=== PATIENT | female | born 1935 | race Caucasian/White ===

== ENCOUNTER 2023-07-20 12:41 | Emergency (ER) | payer MEDICARE, SELFPAY ==
[2023-07-20 12:48] VITALS: BP 146/54
[2023-07-20 14:11] VITALS: BP 143/60
--- NOTE | 2023-07-20 14:13 | ED.GENMED ---
History of Present Illness
<Riley Veliz PA-C - Last Filed: 07/20/23 15:27>
General
Chief Complaint: Abdominal Pain
Source: patient and family
Time Seen by Provider: 07/20/23 14:11
Travel History
Have you had any contact with someone who has COVID-19?: No
Do you have any symptoms of coronavirus? Fever > 100 degrees, chills, cough, shortness of breath, sore throat, loss of taste or smell, muscle aches, or headache?: No
History of Present Illness
History of Present Illness:
88-year-old female with past medical history of GERD, hiatal hernia, previous antibiotic associated colitis presenting the emergency department for evaluation of generalized abdominal discomfort that started a couple of days ago, waxing and waning,
today seemingly worse prompting daughter to take patient here for further evaluation. Patient states that this feels similar to previous episode of antibiotic associated colitis although patient is denying any diarrhea, constipation, urinary
symptoms, fevers, nausea, vomiting. Patient describes the pain as 'like an acid'. She has not attempted any medications at this time.
Past History
<Riley Veliz PA-C - Last Filed: 07/20/23 15:27>
Past History
ED Past Medical History: Cancer (Melanoma), GERD and Hypothyroidism
ED Past Surgical History: Gynecological and Other
Patient has exhibited threatening behavior?: No
Social History
Tobacco: Former smoker
Alcohol: None
Drug: None
Personal: Other
Living: with family
Employment: Retired
Family History
Family History: Other
Review of Systems
<Riley Veliz PA-C - Last Filed: 07/20/23 15:27>
Review of Systems
All Other Systems: ROS reviewed and negative except as documented in HPI and ROS
Phy Exam
<Riley Veliz PA-C - Last Filed: 07/20/23 15:27>
Physical Exam
Physical Exam:
GENERAL: Alert , in no apparent distress
EYE: clear conjunctiva b/l
HEAD: NCAT
ENT: o/p clr, mmm.
CARDIAC: Regular rate and rhythm .
LUNGS: Clear breath sounds bilaterally, no acute respiratory distress, no wheezes/rales/rhonchi
ABDOMEN: Soft, mild tenderness across the mid abdomen but no rebound or guarding, no cvat, negative Caldwell sign, no tenderness at McBurney's point
NEUROLOGICAL: Alert and oriented
SKIN: Warm and dry, skin intact.
MUSCULOSKELETAL: well perfused.
PSYCH: Normal and appropriate interaction.
Scores
<KEVEN Sinha Last Filed: 07/20/23 15:27>
Heart Failure Risk
Heart Failure Risk Score: Not Applicable
Heart Score for Chest Pain Patients
STEMI patient?: Not applicable
Withdrawal Assessment of Alcohol
Withdrawal Assessment Completed?: Not applicable
Course
<KEVEN Sinha Last Filed: 07/20/23 15:27>
Orders/Labs/Results
Orders:
Orders
07/20/23 14:12
CT Abd/pelvis W Iv Cont Urgent
Comment:
Reason For Exam: generalized abd pain x 3-4 days
07/20/23 14:19
Famotidine [Pepcid] 20 mg IV NOW STA
Ketorolac [Toradol] 15 mg IV NOW STA
07/20/23 14:34
Complete Blood Count/With Diff Urgent
Comprehensive Metabolic Panel Urgent
Lipase Urgent
Urinalysis Reflex To Culture Urgent
Date Specimen was Collected: 07/20/23
Time Specimen was Collected: 14:24
Abnormal Lab Results
07/20/23
14:34
WBC 3.0 L 10^3/uL
(4.8-10.8)
RBC 3.75 L 10^6/uL
(4.20-5.40)
Hct 34.4 L %
(37.0-47.0)
MCH 32.3 H pg
(27.0-31.0)
Plt Count 129 L 10^3/uL
(130-400)
Absolute Lymphs (auto) 1.0 L 10^3/uL
(1.2-3.4)
Sodium 132 L mmol/L
(135-145)
07/20/23 14:34
07/20/23 14:34
Vital Signs
Initial and Last Documented VS:
Initial Vital Signs
Temp Pulse Resp BP Pulse Ox
98.0 F 77 20 146/54 99
07/20/23 12:48 07/20/23 12:48 07/20/23 12:48 07/20/23 12:48 07/20/23 12:48
Last Documented Vital Signs
Temp Pulse Resp BP Pulse Ox
98.0 F 65 17 146/58 98
07/20/23 12:48 07/20/23 17:45 07/20/23 17:45 07/20/23 17:03 07/20/23 17:45
<Benoit Tavares Jr., KEVEN - Last Filed: 07/20/23 18:24>
Orders/Labs/Results
Orders:
Orders
07/20/23 14:12
CT Abd/pelvis W Iv Cont Urgent
Comment:
Reason For Exam: generalized abd pain x 3-4 days
07/20/23 14:19
Famotidine [Pepcid] 20 mg IV NOW STA
Ketorolac [Toradol] 15 mg IV NOW STA
07/20/23 14:34
Complete Blood Count/With Diff Urgent
Comprehensive Metabolic Panel Urgent
Lipase Urgent
Urinalysis Reflex To Culture Urgent
Date Specimen was Collected: 07/20/23
Time Specimen was Collected: 14:24
Abnormal Lab Results
07/20/23
14:34
WBC 3.0 L 10^3/uL
(4.8-10.8)
RBC 3.75 L 10^6/uL
(4.20-5.40)
Hct 34.4 L %
(37.0-47.0)
MCH 32.3 H pg
(27.0-31.0)
Plt Count 129 L 10^3/uL
(130-400)
Absolute Lymphs (auto) 1.0 L 10^3/uL
(1.2-3.4)
Sodium 132 L mmol/L
(135-145)
07/20/23 14:34
07/20/23 14:34
Vital Signs
Initial and Last Documented VS:
Initial Vital Signs
Temp Pulse Resp BP Pulse Ox
98.0 F 77 20 146/54 99
07/20/23 12:48 07/20/23 12:48 07/20/23 12:48 07/20/23 12:48 07/20/23 12:48
Last Documented Vital Signs
Temp Pulse Resp BP Pulse Ox
98.0 F 65 17 146/58 98
07/20/23 12:48 07/20/23 17:45 07/20/23 17:45 07/20/23 17:03 07/20/23 17:45
<Riley Veliz PA-C - Last Filed: 07/20/23 15:27>
MDM/Problems Addressed
Differential Diagnosis Includes:
Colitis, diverticulitis, appendicitis, less concern for cholecystitis, GERD, hiatal hernia, gastritis
MDM/Problems Addressed:
88-year-old female presenting the emergency department for evaluation of a few days to maybe around 1 week of generalized abdominal discomfort. She notes that about 2 weeks ago she was on an antibiotic for urinary tract infection which she
completed and then within the last week or so has had this pain developed, today pain seemingly worse. Patient's abdominal exam is overall reassuring with some mild discomfort noted across the mid abdomen but otherwise nothing focal. Patient is
afebrile and overall well-appearing. Will check labs, CT imaging. Patient requesting something for pain. Will treat with low-dose of Toradol and Pepcid.
<Benoit Tavares Jr., PA-C - Last Filed: 07/20/23 18:24>
MDM/Problems Addressed
MDM/Problems Addressed:
88-year-old female presenting the emergency department for evaluation of a few days to maybe around 1 week of generalized abdominal discomfort. She notes that about 2 weeks ago she was on an antibiotic for urinary tract infection which she
completed and then within the last week or so has had this pain developed, today pain seemingly worse. Patient's abdominal exam is overall reassuring with some mild discomfort noted across the mid abdomen but otherwise nothing focal. Patient is
afebrile and overall well-appearing. Will check labs, CT imaging. Patient requesting something for pain. Will treat with low-dose of Toradol and Pepcid.
Care transition to Ed KEVEN Tavares : Following up on CT scan negative for acute process stable for outpatient management advised for close outpatient follow-up. Return precautions given.
<Riley Veliz PA-C - Last Filed: 07/20/23 15:27>
*Pulse Oximetry
Patient hypoxic: no
Data Reviewed
Review of Other/Old Records Reveals: Labs, Records and Progress Notes
Source: patient and family
<Benoit Tavares Jr., PA-C - Last Filed: 07/20/23 18:24>
*Critical Care Note
Total Time (30-74mins, 75-104mins- exclusive of procedures): Not Applicable
ED Attending Note
<Riley Veliz PA-C - Last Filed: 07/20/23 15:27>
-
Portions of this chart may have been created with voice recognition software.� Occasional wrong word or��sound alike� substitutions may have occurred due to the inherent limitations of voice recognition software.
Discharge Plan
Departure
Patient Disposition: Home (Routine Discharge)
Date of Disposition: 07/20/23
Time of Disposition: 18:24
Patient with high blood pressure during this ER visit?: Yes
Discharge Problem:
Abdominal pain
Instructions: Abdominal Pain
Prescriptions:
No Action
aspirin 81 MG tablet,delayed release (DR/EC)
81 mg PO DAILY
levothyroxine 25 MCG tablet
37.5 mcg PO DAILY
potassium chloride [Klor-Con M20] 20 MEQ tablet,ER particles/crystals
20 meq PO BID
calcium polycarbophil [Fiber-Tabs] 625 MG tablet
625 mg PO DAILYPRN PRN (Reason: constipation)
lansoprazole 15 MG capsule,delayed release(DR/EC)
15 mg PO DAILY
docusate sodium 100 MG capsule
100 mg PO BIDPRN PRN (Reason: constiaption)
fluticasone propionate 1 SPRAY spray,suspension
1 spray intranasal DAILYPRN PRN (Reason: allergies)
dicyclomine 10 MG capsule
10 mg PO Q6HPRN PRN (Reason: abd spasms)
cyclosporine [Restasis] 10 DROPS dropperette
1 drp BOTH EYES BID
polyethylene glycol 3350 17 GRAMS powder in packet
17 grams PO DAILYPRN PRN (Reason: constipation) 0RF
chlorthalidone 25 MG tablet
25 mg PO DAILY Qty: 30 0RF
metronidazole 500 mg tablet
500 mg PO Q8H Qty: 21 0RF
ciprofloxacin HCl 500 mg tablet
500 mg PO BID Qty: 14 0RF
Referrals:
Ghulam Rich MD [Family Provider] -
Activity Restrictions/Additional Instructions:
You came to the emergency department today with concerns of abdominal discomfort. Here your reassuring evaluation and reassuring CT scan. Please follow closely with your primary care doctor. Return to the emergency department for any worsening,
new or concerning symptoms.
Interventions
Interventions:
*Risk Screen - Suicide Last Done: 07/20/23 12:48
*General Assessment Last Done: 07/20/23 12:48
*Neglect/Abuse Screening Last Done: 07/20/23 16:12
*ED COVID-19 Vaccine History Last Done: 07/20/23 16:11
UQ-Tlqrnc-Jdgjhnhvhi Assessment Last Done: 07/20/23 14:51
[2023-07-20] MEDS: PEPCID 20 MG IV (14:37)
[2023-07-20] MEDS: TORADOL 15 MG IV (14:37)
[2023-07-20 14:48] LABS: % Basophils 0.3 % (0-2); % Eosinophils 1.6 % (0-6); % Immature Granulocytes 0.3 % (0-0.5); % Lymphocytes 33.9 % (20.5-51.1); % Monocytes 8.6 % (1.7-9.3); % Neutrophils 55.3 % (42.2-75.2); Absolute Eosinophils 0.1 10^3/uL (0-0.7); Absolute Monocytes 0.3 10^3/uL (0.1-0.6); Absolute Neutrophils 1.7 10^3/uL (1.4-6.5); Hematocrit 34.4 % (37.0-47.0); Hemoglobin 12.1 g/dL (12.0-16.0); Mean Corp Hgb Conc. 35.2 g/dL (33.0-37.0); Mean Corpuscular Hgb 32.3 pg (27.0-31.0); Mean Corpuscular Volume 91.7 fL (81.0-99.0); Nucleated Red Blood Cells % 0 %; Red Blood Cell Count 3.75 10^6/uL (4.20-5.40); Red Cell Dist. Width 12.1 % (11.5-14.5)
[2023-07-20 15:00] VITALS: BP 127/57
[2023-07-20 15:00] LABS: Urine Albumin Negative (Neg - Trace); Urine Bilirubin Negative (Negative); Urine Character Clear (Clear); Urine Color Yellow; Urine Glucose Negative (Negative); Urine Ketone Negative (Negative); Urine Leukocyte Negative (Negative); Urine Nitrite Negative (Negative); Urine Occult Blood Negative (Negative); Urine Urobilinogen Negative (Neg - 1+)
[2023-07-20 15:08] LABS: ALT (SGPT) 14 U/L (0-35); AST (SGOT) 25 U/L (14-36); Alkaline Phosphatase 50 U/L (38-126); Blood Urea Nitrogen 16 mg/dl (7-17); Carbon Dioxide 27 mmol/L (22-30); Chloride 101 mmol/L (98-107); Glucose 85 mg/dl (70-99); Lipase 100 U/L (23-300); Potassium 3.7 mmol/L (3.5-5.1); Sodium 132 mmol/L (135-145); Total Bilirubin 0.9 mg/dl (0.2-1.3); Total Protein 6.6 g/dl (6.3-8.2); eGFR > 60.00
[2023-07-20 15:09] LABS: Mean Platelet Volume 9.8 fL (7.4-10.4); Platelet Count 129 10^3/uL (130-400)
[2023-07-20 16:00] VITALS: BP 138/65
[2023-07-20 16:11] VITALS: BMI 21.9
[2023-07-20 17:03] VITALS: BP 146/58
[2023-07-20 18:53] VITALS: BP 130/68
== END 2023-07-20 18:54 | disposition home or self-care (01) ==
LOC: EMR 12:41
PROVIDERS: Physician Assistant Medical; EMERGENCY PHYSICIAN Emergency Medicine; FAMILY PHYSICIAN Family Medicine
DX: R10.9 Unspecified abdominal pain (principal); R03.0 Elevated blood-pressure reading, without diagnosis of hypertension; Z87.891 Personal history of nicotine dependence
CPT/HCPCS: 99284; 96374; 96375; 74177; 80053; 81003; 83690; 85025; Q9967

== ENCOUNTER → 2023-09-27 14:04 | Outpatient (REF) | payer MEDICARE, SELFPAY | LOC: RAD 14:04 | PROVIDERS: ATTENDING PHYSICIAN Family Medicine | DX: M54.50 Low back pain, unspecified (principal) | CPT/HCPCS: 72110 ==

== ENCOUNTER 2023-10-08 21:03 | Emergency (ER) | payer MEDICARE, SELFPAY ==
[2023-10-08 21:08] VITALS: BP 132/90
[2023-10-08 22:00] VITALS: BP 132/58
--- NOTE | 2023-10-08 22:19 | ED.GENMED ---
History of Present Illness
<SIDNEY Boogie - Last Filed: 10/09/23 04:19>
General
Chief Complaint: Fall
Time Seen by Provider: 10/08/23 22:06
Travel History
Have you had any contact with someone who has COVID-19?: No
Do you have any symptoms of coronavirus? Fever > 100 degrees, chills, cough, shortness of breath, sore throat, loss of taste or smell, muscle aches, or headache?: No
History of Present Illness
History of Present Illness:
This is an 88yo Female PMH hypothyroid presenting for a fall 2 hours ago. She states she was walking in her room and fell backwards onto the back of her head on carpet. She states she is unsure of what caused her to fall and denies a sensation of
dizziness, palpitations, or acute leg weakness prior to the fall. She complains of moderate throbbing pain which started in the back of her head and is now radiating to her forehead. She admits to a fall 2 weeks ago involving a compression fracture
of L1. She denies nausea, vomiting, dizziness, and confusion after the injury.
<Manjinder Aguirre DO - Last Filed: 10/09/23 00:17>
General
Source: patient and family
Exam Limitations: none
Past History
<SIDNEY Boogie - Last Filed: 10/09/23 04:19>
Past History
ED Past Medical History: Cancer (Melanoma), GERD and Hypothyroidism
ED Past Surgical History: Gynecological and Other
Patient has exhibited threatening behavior?: No
Social History
Tobacco: Former smoker
Alcohol: None
Drug: None
Personal: Other
Living: with family
Employment: Retired
Family History
Family History: Other
Review of Systems
<SIDNEY Boogie - Last Filed: 10/09/23 04:19>
Review of Systems
Allergies reviewed?: Yes
Constitutional: Reports no symptoms
EENT: Reports no symptoms
Respiratory: Reports no symptoms
Cardiac: Reports no symptoms
ABD/GI: Reports no symptoms
: Reports no symptoms
Musculoskeletal: Reports joint pain (describes chronic knee pain)
Neurological: Reports no symptoms
Phy Exam
<SIDNEY Boogie - Last Filed: 10/09/23 04:19>
General Physical Exam
General Presentation: well appearing and no apparent distress
General age: appears stated age
Cardiovascular Exam
Cardiovascular Exam: regular rate/rhythm, no gallop and no murmur
Pulmonary Exam
Pulmonary Exam: lungs clear
Neurological Exam
Neurological Exam: alert, oriented x3, no motor deficits, no sensory deficits and speech normal
Musculoskeletal Exam
Musculoskeletal Exam: other (no tenderness to neck, hips.)
Course
<SIDNEY Boogie - Last Filed: 10/09/23 04:19>
Orders/Labs/Results
Orders:
Orders
10/08/23 22:35
0.9% Sodium Chloride 1000 ml [Nss] 1,000 ml IV BOLUS
Acetaminophen [Tylenol] 1,000 mg PO NOW STA
10/08/23 22:36
CT Head W/o Iv Contrast Urgent
Comment:
Reason For Exam: Fall, posterior head injury
10/08/23 22:37
Electrocardiogram (*1) Urgent
Reason for Study: Fatigue / Weakness
EKG- Treatment ONCE
10/08/23 22:38
0.9% Sodium Chloride 500 ml [Nss] 500 ml IV BOLUS
10/08/23 23:24
Complete Blood Count/With Diff Urgent
Comprehensive Metabolic Panel Urgent
10/09/23 00:15
Potassium Chloride [KCl] 40 meq PO NOW STA
Abnormal Lab Results
10/08/23
23:24
WBC 4.0 L 10^3/uL
(4.8-10.8)
RBC 3.73 L 10^6/uL
(4.20-5.40)
Hgb 11.6 L g/dL
(12.0-16.0)
Hct 32.9 L %
(37.0-47.0)
MCH 31.1 H pg
(27.0-31.0)
Absolute Lymphs (auto) 1.1 L 10^3/uL
(1.2-3.4)
Sodium 131 L mmol/L
(135-145)
Potassium 3.1 L mmol/L
(3.5-5.1)
Chloride 95 L mmol/L
(98-107)
BUN 18 H mg/dl
(7-17)
10/08/23 23:24
10/08/23 23:24
Vital Signs
Initial and Last Documented VS:
Initial Vital Signs
Temp Pulse Resp BP Pulse Ox
98.5 F 76 14 132/90 100
10/08/23 21:08 10/08/23 21:08 10/08/23 21:08 10/08/23 21:08 10/08/23 21:08
Last Documented Vital Signs
Temp Pulse Resp BP Pulse Ox
98.5 F 71 14 130/66 95
10/08/23 21:08 10/09/23 00:37 10/09/23 00:37 10/09/23 00:37 10/09/23 00:30
<Manjinder Aguirre, DO - Last Filed: 10/09/23 00:17>
Orders/Labs/Results
Orders:
Orders
10/08/23 22:35
0.9% Sodium Chloride 1000 ml [Nss] 1,000 ml IV BOLUS
Acetaminophen [Tylenol] 1,000 mg PO NOW STA
10/08/23 22:36
CT Head W/o Iv Contrast Urgent
Comment:
Reason For Exam: Fall, posterior head injury
10/08/23 22:37
Electrocardiogram (*1) Urgent
Reason for Study: Fatigue / Weakness
EKG- Treatment ONCE
10/08/23 22:38
0.9% Sodium Chloride 500 ml [Nss] 500 ml IV BOLUS
10/08/23 23:24
Complete Blood Count/With Diff Urgent
Comprehensive Metabolic Panel Urgent
10/09/23 00:15
Potassium Chloride [KCl] 40 meq PO NOW STA
Abnormal Lab Results
10/08/23
23:24
WBC 4.0 L 10^3/uL
(4.8-10.8)
RBC 3.73 L 10^6/uL
(4.20-5.40)
Hgb 11.6 L g/dL
(12.0-16.0)
Hct 32.9 L %
(37.0-47.0)
MCH 31.1 H pg
(27.0-31.0)
Absolute Lymphs (auto) 1.1 L 10^3/uL
(1.2-3.4)
Sodium 131 L mmol/L
(135-145)
Potassium 3.1 L mmol/L
(3.5-5.1)
Chloride 95 L mmol/L
(98-107)
BUN 18 H mg/dl
(7-17)
10/08/23 23:24
10/08/23 23:24
Vital Signs
Initial and Last Documented VS:
Initial Vital Signs
Temp Pulse Resp BP Pulse Ox
98.5 F 76 14 132/90 100
10/08/23 21:08 10/08/23 21:08 10/08/23 21:08 10/08/23 21:08 10/08/23 21:08
Last Documented Vital Signs
Temp Pulse Resp BP Pulse Ox
98.5 F 71 14 130/66 95
10/08/23 21:08 10/09/23 00:37 10/09/23 00:37 10/09/23 00:37 10/09/23 00:30
<SIDNEY Boogie - Last Filed: 10/09/23 04:19>
*Critical Care Note
Total Time (30-74mins, 75-104mins- exclusive of procedures): Not Applicable
<Manjinder Aguirre DO - Last Filed: 10/09/23 00:17>
*EKG
Interpreted by ED Provider?: Yes
EKG Intrepretation Date: 10/08/23
Interpretation: normal (Sinus rhythm, left axis, incomplete right bundle branch block, no STEMI)
<Manjinder Aguirre DO - Last Filed: 10/09/23 00:17>
Update Note
Update Note:
CT head negative. Patient feeling better after fluids. Patient has a history of hypokalemia. It is found to be low at 3.1. Will replete orally with 40 mg of potassium chloride. Patient feels comfortable going home
ED Attending Note
<SIDNEY Boogie - Last Filed: 10/09/23 04:19>
-
Portions of this chart may have been created with voice recognition software.� Occasional wrong word or��sound alike� substitutions may have occurred due to the inherent limitations of voice recognition software.
<Manjinder Aguirre DO - Last Filed: 10/09/23 00:17>
ED Attending Note
Patient seen and examined by attending physician: Yes
I performed the substantive portion of visit, reviewed & personally made and approve the management plan that is documented in note by myself or TONYA.: Yes
ED Attending Note:
I have seen and evaluated the patient with a [id number] encounter. I have spoken to the advance practicer provider and involved in the medical history, the physical exam, medical decision making.
Evaluation and management service: agree unless noted differently below.
Results interpretation: agree unless noted differently below.
Focused HPI: 88-year-old female presenting with a fall. Patient was standing by her [place] and she had a quick turn and then she had a fall. She denies any preceding symptoms such as dizziness, palpitations or chest pain. She did hit the back of
her head on carpet. She complains of mild headache. She denies being on blood thinners. Patient does admit that she has been feeling mildly weak over the past few days. She denies urinary symptoms. she denies black or red stools or history of
anemia. She believes she is drinking enough fluids. She has since saw her doctor and had outpatient blood work done but results are not back
Physical exam: Sitting in bed comfortably. No trauma noted on posterior scalp. No neck tenderness. No tenderness to palpation of anterior carotids. Heart regular rate and rhythm. No hip tenderness. Abdomen soft and nontender. Mildly dry
mucous membranes
Medical Decision Making: Given her age and fall, will obtain CT head. Will obtain screening EKG given her generalized weakness. Will obtain basic blood work looking for metabolic abnormalities such as hyponatremia
Discharge Plan
Departure
Patient Disposition: Home (Routine Discharge)
Date of Disposition: 10/09/23
Time of Disposition: 00:16
Patient with high blood pressure during this ER visit?: No
Discharge Problem:
Fall, Hypokalemia
Instructions: Head Injury in Adults (DC)
Prescriptions:
No Action
aspirin 81 MG tablet,delayed release (DR/EC)
81 mg PO DAILY
levothyroxine 25 MCG tablet
37.5 mcg PO DAILY
potassium chloride [Klor-Con M20] 20 MEQ tablet,ER particles/crystals
20 meq PO BID
calcium polycarbophil [Fiber-Tabs] 625 MG tablet
625 mg PO DAILYPRN PRN (Reason: constipation)
lansoprazole 15 MG capsule,delayed release(DR/EC)
15 mg PO DAILY
docusate sodium 100 MG capsule
100 mg PO BIDPRN PRN (Reason: constiaption)
fluticasone propionate 1 SPRAY spray,suspension
1 spray intranasal DAILYPRN PRN (Reason: allergies)
dicyclomine 10 MG capsule
10 mg PO Q6HPRN PRN (Reason: abd spasms)
cyclosporine [Restasis] 10 DROPS dropperette
1 drp BOTH EYES BID
polyethylene glycol 3350 17 GRAMS powder in packet
17 grams PO DAILYPRN PRN (Reason: constipation) 0RF
chlorthalidone 25 MG tablet
25 mg PO DAILY Qty: 30 0RF
metronidazole 500 mg tablet
500 mg PO Q8H Qty: 21 0RF
ciprofloxacin HCl 500 mg tablet
500 mg PO BID Qty: 14 0RF
Referrals:
Ghulam Rich MD [Family Provider] -
Activity Restrictions/Additional Instructions:
Please return for any worsening symptoms.
You may return at any time if you have further concerns.
Please follow up with your doctor at the first available appointment, preferably this week.
Thank you for choosing [facility].
Interventions
Interventions:
*Risk Screen - Suicide Last Done: 10/08/23 21:08
*General Assessment Last Done: 10/08/23 21:08
*Neglect/Abuse Screening Last Done: 10/08/23 21:08
ED- Fall Risk Assessment Last Done: 10/09/23 00:53
*ED COVID-19 Vaccine History Last Done: 10/08/23 21:08
*Nursing Disposition Last Done: 10/09/23 00:53
ED- Neurological Assessment Last Done: 10/08/23 21:13
Discharge Date and Time
Discharge Date/Time: 10/09/23 00:54
Print Language: KHMER
[2023-10-08] MEDS: NSS 500 IV (23:16)
[2023-10-08] MEDS: TYLENOL 1000 MG PO (23:16)
[2023-10-08 23:45] LABS: % Basophils 0.5 % (0-2); % Eosinophils 1.2 % (0-6); % Immature Granulocytes 0.2 % (0-0.5); % Lymphocytes 26.1 % (20.5-51.1); Absolute Eosinophils 0.1 10^3/uL (0-0.7); Absolute Lymphocytes 1.1 10^3/uL (1.2-3.4); Absolute Monocytes 0.3 10^3/uL (0.1-0.6); Absolute Neutrophils 2.6 10^3/uL (1.4-6.5); Hematocrit 32.9 % (37.0-47.0); Hemoglobin 11.6 g/dL (12.0-16.0); Mean Corp Hgb Conc. 35.3 g/dL (33.0-37.0); Mean Corpuscular Hgb 31.1 pg (27.0-31.0); Mean Corpuscular Volume 88.2 fL (81.0-99.0); Mean Platelet Volume 7.9 fL (7.4-10.4); Nucleated Red Blood Cells % 0 %; Platelet Count 222 10^3/uL (130-400); Red Blood Cell Count 3.73 10^6/uL (4.20-5.40); Red Cell Dist. Width 12.2 % (11.5-14.5)
[2023-10-08 23:59] LABS: ALT (SGPT) 13 U/L (0-35); AST (SGOT) 23 U/L (14-36); Albumin 3.6 g/dl (3.5-5.0); Alkaline Phosphatase 80 U/L (38-126); Blood Urea Nitrogen 18 mg/dl (7-17); Calcium 9.1 mg/dl (8.4-10.2); Carbon Dioxide 30 mmol/L (22-30); Chloride 95 mmol/L (98-107); Glucose 99 mg/dl (70-99); Potassium 3.1 mmol/L (3.5-5.1); Sodium 131 mmol/L (135-145); Total Bilirubin 0.5 mg/dl (0.2-1.3); Total Protein 6.4 g/dl (6.3-8.2); eGFR > 60.00
[2023-10-09] MEDS: KCL 40 MEQ PO (00:32)
[2023-10-09 00:37] VITALS: BP 130/66
== END 2023-10-09 00:54 | disposition home or self-care (01) ==
LOC: EMR 21:03
PROVIDERS: EMERGENCY PHYSICIAN Student in an Organized Health Care Education/Training Program; FAMILY PHYSICIAN Family Medicine
DX: E87.6 Hypokalemia (principal); S09.90XA Unspecified injury of head, initial encounter; W19.XXXA Unspecified fall, initial encounter
CPT/HCPCS: 99284; 70450; 80053; 85025; 93005

== ENCOUNTER → 2023-10-31 12:16 | Outpatient (REF) | payer MEDICARE, SELFPAY | LOC: RAD 12:16 | PROVIDERS: ATTENDING PHYSICIAN Physician Assistant; FAMILY PHYSICIAN Family Medicine | DX: K59.00 Constipation, unspecified (principal) | CPT/HCPCS: 74022 ==

== ENCOUNTER 2023-12-22 21:34 | Inpatient (IN) | payer MEDICARE, SELFPAY ==
[2023-12-22 17:40] VITALS: BP 133/59; BMI 20.1
[2023-12-22 17:54] LABS: % Immature Granulocytes 0.3 % (0-0.5); % Lymphocytes 9.1 % (20.5-51.1); % Monocytes 5.2 % (1.7-9.3); % Neutrophils 85.4 % (42.2-75.2); Absolute Lymphocytes 0.6 10^3/uL (1.2-3.4); Absolute Monocytes 0.4 10^3/uL (0.1-0.6); Hematocrit 30.9 % (37.0-47.0); Hemoglobin 10.8 g/dL (12.0-16.0); Mean Corpuscular Hgb 31.3 pg (27.0-31.0); Mean Corpuscular Volume 89.6 fL (81.0-99.0); Mean Platelet Volume 8.4 fL (7.4-10.4); Nucleated Red Blood Cells % 0 %; Platelet Count 246 10^3/uL (130-400); Red Blood Cell Count 3.45 10^6/uL (4.20-5.40); Red Cell Dist. Width 14.6 % (11.5-14.5); White Blood Cell Count 7.1 10^3/uL (4.8-10.8)
[2023-12-22 18:00] VITALS: BP 140/59
--- NOTE | 2023-12-22 18:02 | ED.GENMED ---
History of Present Illness
<Galen Garnett PA-C - Last Filed: 12/24/23 15:28>
General
Chief Complaint: Fall
Time Seen by Provider: 12/22/23 17:58
History of Present Illness
History of Present Illness:
88-year-old female presents to the emergency department via EMS from [facility] for evaluation of complaints of nausea, suspected to have fallen at some point yesterday however this was not reported to the patient's family. Patient cannot
write any history secondary to dementia. Was noted to have shortening and external rotation of her right lower extremity and refusal to walk which prompted the emergency department evaluation.
Past History
<Galen Garnett PA-C - Last Filed: 12/24/23 15:28>
Past History
ED Past Medical History: Cancer (Melanoma), GERD and Hypothyroidism
ED Past Surgical History: Gynecological and Other
Patient has exhibited threatening behavior?: No
Social History
Tobacco: Former smoker
Alcohol: None
Drug: None
Personal: Other
Living: with family
Employment: Retired
Family History
Family History: Other
Review of Systems
<Galen Garnett PA-C - Last Filed: 12/24/23 15:28>
Review of Systems
Allergies reviewed?: Yes
All Other Systems: ROS reviewed and negative except as documented in HPI and ROS
Phy Exam
<Galen Garnett PA-C - Last Filed: 12/24/23 15:28>
Physical Exam
Physical Exam:
GEN: Well appearing, NAD, WDWN
HEENT: Oral mucosa moist, no scleral icterus
Cardiac: Regular rate
Lung: No respiratory distress, no tachypnea
MSK: Shortening and external rotation of the right lower extremity, diffuse edema of the bilateral lower extremities
Skin: Good color, no pallor or jaundice, no rashes
Neuro: Alert, pleasantly confused
Psych: Calm, cooperative
Course
<Galen Garnett PA-C - Last Filed: 12/24/23 15:28>
Orders/Labs/Results
Orders:
Orders
12/22/23 Dinner
Regular
At Your Request: Limited, Parts Clerk Required
12/22/23 17:38
Electrocardiogram (*1) Urgent
Reason for Study: Vertigo / Dizzy
CR Hip - RT w/wo Pel 2-3 Vw* Urgent
Comment:
Reason For Exam: post fall, shortening and rotation in right leg
Include a pelvis x-ray?: Yes
12/22/23 17:39
EKG- Treatment ONCE
12/22/23 17:44
Complete Blood Count/With Diff Urgent
Comprehensive Metabolic Panel Urgent
Ferritin Urgent
Comment: ADD ON
Folate Urgent
Comment: ADD ON
Iron Urgent
Comment: ADD ON
Total Iron Binding Urgent
Comment: ADD ON
Vitamin B12 Urgent
Comment: ADD ON
12/22/23 18:01
CR Knee- Right 4 Or More View* Urgent
Comment:
Reason For Exam: fall
12/22/23 19:13
CT Head W/o Iv Contrast Urgent
Comment:
Reason For Exam: unwitnessed fall
12/22/23 19:45
Code Status As Directed
Resuscitation Status: Full Code
Reached after discussion with pt or family/Healthcare POA: Yes
Physician note:: Discussed via phone w/ daughter Tonie Buckley on 12/21
12/22/23 20:51
Add On- LAB Urgent
Tests Added?: iron tibc, ferritin, folate , b12
12/22/23 21:04
Admit/Transfer Patient As Directed
Co-Sign Provider:
Level of Care: Inpatient admission
Assign to:: Medical/Surgical
Physician / Group: maia toro
Diagnosis: fall right fem neck fx, anemia, dementia hx
Reason for Hospitalization: fall right fem neck fx, anemia, dementia hx
Expected length of stay greater than two midnights?: Yes
ELOS- Estimated Length of Stay in days: 4
I certify the patient meets the requirements for IP care: Yes
ORTHOPEDIC CONSULT Routine
Consulting Provider: Enrique Whitlock
Was physician already notified: Yes
Reason for consult: right femur fx
12/22/23 21:07
Bisacodyl [Dulcolax] 10 mg RECTAL NOW STA
12/22/23 22:03
Acetaminophen [Tylenol] 650 mg PO Q4HWA PRN
Docusate Sodium [Colace] 100 mg PO BID
Magnesium Hydroxide [Milk of Magnesia] 30 ml PO DAILYPRN PRN
Oxycodone [Roxicodone] 5 mg PO Q4HPRN PRN
Sennosides [Senokot] 17.2 mg PO BID
12/22/23 22:03
Urine Osmolality Random [Osmolality, Random Urine] Routine
Date Specimen was Collected: 12/23/23
Time Specimen was Collected: 15:57
Urine Sodium Routine
Date Specimen was Collected: 12/23/23
Time Specimen was Collected: 15:57
Activity As Directed
Activity Level: Bedrest
Bladder Scan As Directed
Follow Bladder Retention/Intermittent Cath Algorithm?: Yes
PRN if no void in __ hours: 6
Comment: if not voiding 6 hrs upon arrival to floor, bladder scan & follow algorithm
Intake/ Output As Directed
Frequency: Per unit guidelines
Pneumatic Compression Sleeves As Directed
Type: Knee high
Straight Cath As Directed
Frequency: Per Retention Algorithm
Additional Instructions: straight cath as needed per acute urinary retention algorithm for 24 hrs
Additional Instructions: for bladder scan greater than 400 mL
Vital Signs As Directed
Frequency: Per unit guidelines
Ot Eval And Treat Routine
Pt Eval And Treat Routine
Activity Level: With Assistance
DX Deep Vein Thrombosis Video Routine
12/22/23 22:26
TSH Reflex To Free T4 Routine
Cyclobenzaprine HCl [Flexeril] 5 mg PO HSPRN PRN
12/23/23 05:41
TSH Reflex To Free T4 IN AM
12/23/23 Breakfast
NPO
Allow oral meds: Yes
Allow clear liquids: Sips of Clears
Levothyroxine [Synthroid] 37.5 mcg PO DAILY@0600
12/23/23 08:00
Furosemide [Lasix] 40 mg PO DAILY
Lactobac/Bifidobac [Visbiome] 4 cap PO DAILY
Pantoprazole [Protonix] 40 mg PO DAILY
Potassium Chloride [KCl] 20 meq PO BID
Sucralfate [Carafate] 1 gram PO BID
Tamsulosin [Flomax] 0.4 mg PO DAILY
Abnormal Lab Results
12/22/23
17:44
RBC 3.45 L 10^6/uL
(4.20-5.40)
Hgb 10.8 L g/dL
(12.0-16.0)
Hct 30.9 L %
(37.0-47.0)
MCH 31.3 H pg
(27.0-31.0)
RDW 14.6 H %
(11.5-14.5)
Absolute Lymphs (auto) 0.6 L 10^3/uL
(1.2-3.4)
Neutrophils % 85.4 H %
(42.2-75.2)
Lymphocytes % 9.1 L %
(20.5-51.1)
Sodium 130 L mmol/L
(135-145)
Chloride 97 L mmol/L
(98-107)
Glucose 102 H mg/dl
(70-99)
TIBC 245 L ug/dl
(265-497)
AST 39 H U/L
(14-36)
Vitamin B12 207 L pg/ml
(239-931)
12/22/23 17:44
12/22/23 17:44
Vital Signs
Initial and Last Documented VS:
Initial Vital Signs
Temp Pulse Resp BP Pulse Ox
98.5 F 71 16 133/59 96
12/22/23 17:40 12/22/23 17:40 12/22/23 17:40 12/22/23 17:40 12/22/23 17:40
Last Documented Vital Signs
Temp Pulse Resp BP Pulse Ox
98.1 F 88 18 93/53 97
12/24/23 15:25 12/24/23 15:25 12/24/23 15:25 12/24/23 15:25 12/24/23 15:25
<Riley Veliz PA-C - Last Filed: 12/22/23 20:50>
Orders/Labs/Results
Orders:
Orders
12/22/23 Dinner
Regular
At Your Request: Limited, Parts Clerk Required
12/22/23 17:38
Electrocardiogram (*1) Urgent
Reason for Study: Vertigo / Dizzy
CR Hip - RT w/wo Pel 2-3 Vw* Urgent
Comment:
Reason For Exam: post fall, shortening and rotation in right leg
Include a pelvis x-ray?: Yes
12/22/23 17:39
EKG- Treatment ONCE
12/22/23 17:44
Complete Blood Count/With Diff Urgent
Comprehensive Metabolic Panel Urgent
Ferritin Urgent
Comment: ADD ON
Folate Urgent
Comment: ADD ON
Iron Urgent
Comment: ADD ON
Total Iron Binding Urgent
Comment: ADD ON
Vitamin B12 Urgent
Comment: ADD ON
12/22/23 18:01
CR Knee- Right 4 Or More View* Urgent
Comment:
Reason For Exam: fall
12/22/23 19:13
CT Head W/o Iv Contrast Urgent
Comment:
Reason For Exam: unwitnessed fall
12/22/23 19:45
Code Status As Directed
Resuscitation Status: Full Code
Reached after discussion with pt or family/Healthcare POA: Yes
Physician note:: Discussed via phone w/ daughter Tonie Buckley on 12/21
12/22/23 20:51
Add On- LAB Urgent
Tests Added?: iron tibc, ferritin, folate , b12
12/22/23 21:04
Admit/Transfer Patient As Directed
Co-Sign Provider:
Level of Care: Inpatient admission
Assign to:: Medical/Surgical
Physician / Group: maia toro
Diagnosis: fall right fem neck fx, anemia, dementia hx
Reason for Hospitalization: fall right fem neck fx, anemia, dementia hx
Expected length of stay greater than two midnights?: Yes
ELOS- Estimated Length of Stay in days: 4
I certify the patient meets the requirements for IP care: Yes
ORTHOPEDIC CONSULT Routine
Consulting Provider: Enrique Whitlock
Was physician already notified: Yes
Reason for consult: right femur fx
12/22/23 21:07
Bisacodyl [Dulcolax] 10 mg RECTAL NOW STA
12/22/23 22:03
Acetaminophen [Tylenol] 650 mg PO Q4HWA PRN
Docusate Sodium [Colace] 100 mg PO BID
Magnesium Hydroxide [Milk of Magnesia] 30 ml PO DAILYPRN PRN
Oxycodone [Roxicodone] 5 mg PO Q4HPRN PRN
Sennosides [Senokot] 17.2 mg PO BID
12/22/23 22:03
Urine Osmolality Random [Osmolality, Random Urine] Routine
Date Specimen was Collected: 12/23/23
Time Specimen was Collected: 15:57
Urine Sodium Routine
Date Specimen was Collected: 12/23/23
Time Specimen was Collected: 15:57
Activity As Directed
Activity Level: Bedrest
Bladder Scan As Directed
Follow Bladder Retention/Intermittent Cath Algorithm?: Yes
PRN if no void in __ hours: 6
Comment: if not voiding 6 hrs upon arrival to floor, bladder scan & follow algorithm
Intake/ Output As Directed
Frequency: Per unit guidelines
Pneumatic Compression Sleeves As Directed
Type: Knee high
Straight Cath As Directed
Frequency: Per Retention Algorithm
Additional Instructions: straight cath as needed per acute urinary retention algorithm for 24 hrs
Additional Instructions: for bladder scan greater than 400 mL
Vital Signs As Directed
Frequency: Per unit guidelines
Ot Eval And Treat Routine
Pt Eval And Treat Routine
Activity Level: With Assistance
DX Deep Vein Thrombosis Video Routine
12/22/23 22:26
TSH Reflex To Free T4 Routine
Cyclobenzaprine HCl [Flexeril] 5 mg PO HSPRN PRN
12/23/23 05:41
TSH Reflex To Free T4 IN AM
12/23/23 Breakfast
NPO
Allow oral meds: Yes
Allow clear liquids: Sips of Clears
Levothyroxine [Synthroid] 37.5 mcg PO DAILY@0600
12/23/23 08:00
Furosemide [Lasix] 40 mg PO DAILY
Lactobac/Bifidobac [Visbiome] 4 cap PO DAILY
Pantoprazole [Protonix] 40 mg PO DAILY
Potassium Chloride [KCl] 20 meq PO BID
Sucralfate [Carafate] 1 gram PO BID
Tamsulosin [Flomax] 0.4 mg PO DAILY
Abnormal Lab Results
12/22/23
17:44
RBC 3.45 L 10^6/uL
(4.20-5.40)
Hgb 10.8 L g/dL
(12.0-16.0)
Hct 30.9 L %
(37.0-47.0)
MCH 31.3 H pg
(27.0-31.0)
RDW 14.6 H %
(11.5-14.5)
Absolute Lymphs (auto) 0.6 L 10^3/uL
(1.2-3.4)
Neutrophils % 85.4 H %
(42.2-75.2)
Lymphocytes % 9.1 L %
(20.5-51.1)
Sodium 130 L mmol/L
(135-145)
Chloride 97 L mmol/L
(98-107)
Glucose 102 H mg/dl
(70-99)
TIBC 245 L ug/dl
(265-497)
AST 39 H U/L
(14-36)
Vitamin B12 207 L pg/ml
(239-931)
12/22/23 17:44
12/22/23 17:44
Vital Signs
Initial and Last Documented VS:
Initial Vital Signs
Temp Pulse Resp BP Pulse Ox
98.5 F 71 16 133/59 96
12/22/23 17:40 12/22/23 17:40 12/22/23 17:40 12/22/23 17:40 12/22/23 17:40
Last Documented Vital Signs
Temp Pulse Resp BP Pulse Ox
98.1 F 88 18 93/53 97
12/24/23 15:25 12/24/23 15:25 12/24/23 15:25 12/24/23 15:25 12/24/23 15:25
<Galen Garnett PA-C - Last Filed: 12/24/23 15:28>
MDM/Problems Addressed
MDM/Problems Addressed:
Unfortunately patient was identified to have a right femoral neck fracture. I discussed with her daughter and power of button reclaimer who is amenable to surgery. Will be admitted to the hospitalist service with orthopedic consultation
<Riley Veliz PA-C - Last Filed: 12/22/23 20:50>
*Radiology
Radiology exam reviewed: preliminary read by ED provider and radiology read reviewed
*Critical Care Note
Total Time (30-74mins, 75-104mins- exclusive of procedures): Not Applicable
<Riley Veliz PA-C - Last Filed: 12/22/23 20:50>
Patient Management
Discussion with other providers: Hospitalist and Dye Automation Operator
Escalation/DeEscalation of care consider admission/obs:
Received patient in signout pending CT of the head. Ultimate disposition will be for admission as long as head CT is unremarkable.
Patient XR shows closed right femoral neck fracture. Ortho aware and plan to take to OR tomorrow. Hospitalist team accepts for continued evaluation and treatment
ED Attending Note
<Galen Garnett PA-C - Last Filed: 12/24/23 15:28>
-
Portions of this chart may have been created with voice recognition software.� Occasional wrong word or��sound alike� substitutions may have occurred due to the inherent limitations of voice recognition software.
Discharge Plan
Departure
Patient Disposition: Admit
Date of Disposition: 12/22/23
Time of Disposition: 20:18
Presentation/result/management discussed w/ accepting MD/DO: Hospitalist
Discharge Problem:
Closed fracture of neck of right femur
Interventions
Interventions:
*Risk Screen - Suicide Last Done: 12/22/23 17:40
*General Assessment Last Done: 12/22/23 17:40
*Neglect/Abuse Screening Last Done: 12/22/23 17:40
ED- Fall Risk Assessment Last Done: 12/22/23 17:40
*ED COVID-19 Vaccine History Last Done: 12/22/23 17:40
*Nursing Disposition Last Done: 12/22/23 22:34
ED-Musculoskeletal Assessment Last Done: 12/22/23 17:40
ED- Neurological Assessment Last Done: 12/22/23 17:40
ED-Skin Assessment Last Done: 12/22/23 17:40
Discharge Date and Time
Discharge Date/Time: 12/22/23 22:35
[2023-12-22 18:08] LABS: ALT (SGPT) 20 U/L (0-35); AST (SGOT) 39 U/L (14-36); Albumin 3.6 g/dl (3.5-5.0); Alkaline Phosphatase 79 U/L (38-126); Blood Urea Nitrogen 13 mg/dl (7-17); Calcium 8.5 mg/dl (8.4-10.2); Carbon Dioxide 29 mmol/L (22-30); Chloride 97 mmol/L (98-107); Estimated Creatinine Clearance 58 ml/min; Glucose 102 mg/dl (70-99); Potassium 3.8 mmol/L (3.5-5.1); Sodium 130 mmol/L (135-145); Total Bilirubin 1.1 mg/dl (0.2-1.3); Total Protein 6.4 g/dl (6.3-8.2); eGFR > 60.00
--- NOTE | 2023-12-22 20:25 | HPS.HSE ---
Addendum entered and electronically signed by Fuentes Fletcher DO 12/22/23 23:00:
Patient seen and examined independently. Agree with findings and plan as set forth by LYNETTE Bone.
Patient is an 88y F with PMH significant for dementia and hypothyroidism who presents to ED for evaluation of R hip pain and nausea. Patient states that she fell last PM outside on her patio. She states that she called for help but no one
answered her. She does not recall how she got back inside / into bed. She does not recall whether or not she struck her head or lost consciousness. Patient was checked on this AM and complained of nausea and hip discomfort. She was transported
to the ED where she was noted to have R femur fracture.
Ass:
Right Hip Fracture
Fall at Home - Unwitnessed
Hyponatremia - Likely hypervolemic
Senile Dementia
Chronic HFpEF
Benign Hypertension
L1 Compression Fracture
Normocytic Anemia
Hypothyroidism
GERD
Chronic Constipation
Plan:
Admit for further evaluation and treatment.
Ortho eval for eventual operative repair.
Patient is at increased risk for complications compared to an otherwise healthy individual of her age.
Benefits of planned procedure outweigh the potential risks.
Will optimize medical issues in the next 24 hours after which patient may proceed to OR as planned.
Fluid restriction / continue usual Lasix dosing for hypervolemia / edema / hyponatremia.
Follow for improvement in Na levels, I/Os, daily weights, etc.
Check iron studies, etc and address anemia as needed. Follow H&H perioperatively and transfuse if indicated.
CT head done in the ED was unremarkable.
Continue usual T4 supplementation.
Post-op PT / OT evals.
Addendum entered and electronically signed by LYNETTE Bone 12/22/23 21:54:
Pt's daughter Tonie made aware of surgery tmr . she will come to hospital either before or after .
Original Note:
Family Physician
-
Family Physician: Ghulam Rich
Chief Complaint
-
Nausea, fall with right lower extremity deformity
History of Present Illness
88 year old female Pt lives [facility] assisted just moved in September 2023 after Lumbar fx was found by staff today lying on the floor unable to get up and bear weight on her right side it was felt that she had fallen.
Patient believes she slipped on a patio but her daughter states there is no patio inside of her room although she was out yesterday sitting outside on the patio. Complains of pain in her right hip and knee she has external rotation of her right
leg. Chronic bilateral leg edema none pitting +2 right foot pulses intact sensation intact bilaterally. Her daughter states she is on Lasix for leg edema due to venous insufficiency. She had a fall in August sustaining a lumbar compression
fracture. She gets PT/OT 2-3 times a week for Lumbar compression fx according to her daughter Tonie . Patient denies current headache, neck pain, chest pain, palpitations, shortness breath, cough, abdominal pain, nausea, vomiting, diarrhea, urinary
symptoms.
She has past medical history dementia, hypothyroidism, GERD/GI ulcer, colitis, chronic lower back pain, vertigo, melanoma left arm with lymph node removal, seasonal allergies
Medical History
Past Medical History
Past Medical History: Reports Other
Additional Past Medical History:
dementia
hypothyroidism
GERD/GI ulcer
colitis
Chronic constipation
chronic lower back pain secondary to L1 compression fracture August 2023
vertigo
melanoma left arm with lymph node removal
seasonal allergies
Past Surgical History: Reports Other
Additional Past Surgical History:
Melanoma removal left arm with lymph node removal
Partial hysterectomy
Social History
Tobacco: Former Smoker
Alcohol: None
Drug: None
Personal: Single
Living: Alone ([facility])
Employment: Retired
Family History
Family History: Other (Patient believes both of her parents had dementia)
Allergies / Home Medications
Allergies reflects when Allergies were last updated in [facility].
Home Medications with original date entered in [facility]
Allergy/Medication List:
Allergies
Allergy/AdvReac Type Severity Reaction Status Date / Time
Sulfa (Sulfonamide Allergy GENERALIZED Verified 10/08/23 21:14
Antibiotics) WEAKNESS
spironolactone AdvReac HEADACHE Verified 10/08/23 21:14
Home Medications
levothyroxine 25 mcg tablet 37.5 mcg PO DAILY Thyroid 09/24/20
potassium chloride 20 mEq tablet,extended release(part/cryst) (Klor-Con M) 20 meq PO BID Supplement 09/24/20
Bifidobacterium infantis 4 mg capsule (Align) 4 mg PO DAILY 12/22/23
cyclobenzaprine 5 mg tablet 5 mg PO HSPRN PRN back pain 12/22/23
fluticasone propionate 50 mcg/actuation nasal spray,suspension (Flonase Allergy Relief) 2 spray intranasal DAILY 12/22/23
furosemide 40 mg tablet 40 mg PO DAILY 12/22/23
omeprazole 40 mg capsule,delayed release 40 mg PO DAILY 12/22/23
sennosides 8.6 mg tablet (senna) 8.6 mg PO DAILY 12/22/23
sucralfate 1 gram tablet 1 g PO BIDPRN PRN ulcers 12/22/23
tramadol 50 mg tablet 50 mg PO Q6HPRN PRN moderate pain 12/22/23
Review of Systems
-
History Source: Patient and Family (Daughter Tonie via phone)
A 12 point ROS was completed and negative except as noted: Yes
Constitutional: Denies Fatigue or Chills
EENT: Denies Sore Throat or Runny Nose
Respiratory: Denies Cough or Trouble Breathing
Cardiac: Denies Chest Pain, Diaphoresis, Palpitations or Syncope
Abdomen/GI: Denies Abdominal Pain, Nausea, Vomiting, Diarrhea, Constipated, Bloody Stools or Black Stools
: Denies Dysuria, Frequency, Flank Pain, Incontinence, Difficulty Voiding or Urgency
Musculoskeletal: Reports Joint Pain (Right hip, right knee), Edema (Right knee) and Other (Right leg shortened and externally rotated)
Skin: Denies Itching or Rash
Neurological: Denies Dizzy, Headache or Weakness
Endocrine: Reports No Symptoms
Hematologic/Lymphatic: Reports No Symptoms
Psych: Reports Calm
Physical Exam
Vital Signs
Vital Signs
Temp Pulse Resp BP Pulse Ox
98.5 F 68 15 133/59 99
12/22/23 17:40 12/22/23 17:51 12/22/23 17:51 12/22/23 17:40 12/22/23 17:51
Physical Exam
General: Comfortable and Conversant; No Fever or Chills
HEENT: NormoCephalic, Anicteric, Moist mucous membranes, Atraumatic, PERRLA, Thruston Conjunctivae, No Ptosis and Neck Nontender
Respiratory: Clear; No Wheezes, Rales or Rhonchi
Cardiac: S1/S2, Regular Rhythm and Peripheral Edema (Chronic nonpitting +1, +2 right pedal); No Murmur, Rub or Gallop
GI: Soft, Non Tender, Non Distended, Normal Bowel Sounds and No Hepatosplenomegaly
Rectal: Deferred by Provider
Genito-urinary: Deferred by me
Musculoskeletal: Cyanosis, No Cyanosis, Edema, Left Lower Extremity (+1 nonpitting), Edema, Right Lower Extremity (+1 nonpitting to lower extremity, +2 dorsal pedal) and Other (Right leg shortened and externally rotated, tenderness right hip, right
knee secondary to fracture of right femur)
Skin: Warm and Dry; No Rash
Neuro: Awake, Alert, Oriented (To name a, president, daughter but not year or sequence of events), Cranial Nerves Intact and No Sensory Deficits; No Slurred Speech, Facial Droop or Tremors
Psych: Calm
Laboratory Results
-
12/22/23 17:44
12/22/23 17:44
Laboratory Results
Total Bilirubin 1.1 mg/dl (0.2-1.3) 12/22/23 17:44
AST 39 U/L (14-36) H 12/22/23 17:44
ALT 20 U/L (0-35) 12/22/23 17:44
Alkaline Phosphatase 79 U/L (38-126) 12/22/23 17:44
Impression/Plan
-
Impression/plan:
Admit to MedSurg
#Right femoral neck fracture secondary to unwitnessed fall
#Right knee contusion secondary to unwitnessed fall
-Consult Ortho
-Pain control, IV Zofran
-PT/OT/case management consult
Right hip/pelvis: Acute displaced subcapital fracture of the right femoral neck
Right knee severe diffuse soft tissue swelling and subcutaneous edema no joint effusion, fracture or foreign body
CT head: No acute intracranial abnormality
EKG: NSR 70 bpm, QTc 408 MS
#Acute on chronic constipation
#Large amount fecal material cecum and rectum on x-ray
-Will give enema
-Postop continue senna daily, MiraLAX as needed, align
#L1 compression fx August 2023/Chronic amb dysfunction - uses walker
- pt on tramadol for pain
#Dementia Hx
oriented to name president Hilda thinks it 2019
-Fall precautions
#HTN�benign
BP 133/59
-Hold Lasix 40 mg daily
#Anemia-normocytic
Hgb 10.8 baseline appears 12
Check B12, folate, iron panel
#Chronic peripheral edema chronic venous insuff
-cont lasix 40 mg
#Hypothyroidism
-Continue levothyroxine 37.5 mcg p.o. daily
#GERD
-Continue omeprazole 40 mg daily
Other PMH:
Pancreatic cyst
Hx colitis
Vertigo
Melanoma removal left arm with lymph node removal
Partial hysterectomy
DVT prophylaxis
SCDs
Full code for surgery then DNR per patient and daughter Tonie
[2023-12-22 21:31] VITALS: BP 137/54
[2023-12-22 21:40] LABS: Iron 53 ug/dl (37-170)
[2023-12-22 21:49] LABS: Percent Saturation 21 % (20-50); Total Iron Binding Capacity 245 ug/dl (265-497)
[2023-12-22 22:19] VITALS: BP 148/62
[2023-12-22 22:21] VITALS: BMI 20.3
--- NOTE | 2023-12-22 22:30 | PTCARENOTE ---
Pt arrived to floor via stretcher from ED, Pt AAO1-[address]cont for mod void. Pt reports 10/10 with movement but tolerable 2/10 at rest. Pt oriented to room and hospital policies. Call carey within reach
[2023-12-22 22:47] LABS: Folate 6.8 ng/ml (2.76-20); Vitamin B12 207 pg/ml (239-931)
[2023-12-22] MEDS: COLACE 100 MG PO (22:54)
[2023-12-22] MEDS: SENOKOT 17.2 MG PO (22:54)
[2023-12-22] MEDS: ROXICODONE 5 MG PO (22:55)
[2023-12-22 23:26] LABS: TSH Reflex To Free T4 3.35 uIU/ml (0.47-4.68)
--- NOTE | 2023-12-22 23:45 | CON.ORTHO ---
Consultation
-
Date/Time Consultation Requested: December 18/2104
Date/Time Consultation Performed: December 18/1030
Requesting Provider: LYNETTE Wells
Performing Provider: Kameron for Ritting
Reason for Consultation: Right hip fracture
Consultation - Orthopedics
History
Dictation#[id number]
HPI:
Asked to see this 88 y/o white female with a PMH of dementia, hypothyroid, GERD/GI ulcer, colitis, vertigo, venous insufficiency, and melanoma Hx, who was found on the ground by staff at the [facility] after an apparent fall. She reports a
mechanical fall, but per Hx from her daughter Tonie, the specifics are questionable. She also fell in August of this year and sustained a lumbar compression Fx for which she has been receiving PT/OT 3xs/week. She was transported here to [facility] where
xrays confirmed a RIGHT hip fracture. She has been admitted to the Hospitalist service for further work-up and we have been requested in consultation with regards to her right hip fracture
Allergies / Home Medications
Allergy/AdvReac Type Severity Reaction Status Date / Time
Sulfa (Sulfonamide Allergy GENERALIZED Verified 10/08/23 21:14
Antibiotics) WEAKNESS
spironolactone AdvReac HEADACHE Verified 10/08/23 21:14
�Medication �Instructions �Recorded
levothyroxine 25 mcg tablet 37.5 mcg PO DAILY Thyroid 09/24/20
potassium chloride 20 mEq 20 meq PO BID Supplement 09/24/20
tablet,extended
release(part/cryst) (Klor-Con M)
Bifidobacterium infantis 4 mg 4 mg PO DAILY 12/22/23
capsule (Align)
cyclobenzaprine 5 mg tablet 5 mg PO HSPRN PRN back pain 12/22/23
fluticasone propionate 50 2 spray intranasal DAILY 12/22/23
mcg/actuation nasal
spray,suspension (Flonase Allergy
Relief)
furosemide 40 mg tablet 40 mg PO DAILY 12/22/23
omeprazole 40 mg capsule,delayed 40 mg PO DAILY 12/22/23
release
sennosides 8.6 mg tablet (senna) 8.6 mg PO DAILY 12/22/23
sucralfate 1 gram tablet 1 g PO BIDPRN PRN ulcers 12/22/23
tramadol 50 mg tablet 50 mg PO Q6HPRN PRN moderate pain 12/22/23
Vital Signs / Lab Results
Temp Pulse Resp BP Pulse Ox
98.5 F 72 16 148/62 96
12/22/23 22:19 12/22/23 22:19 12/22/23 22:19 12/22/23 22:19 12/22/23 22:19
12/22/23 17:44
12/22/23 17:44
Assessment / Plan
PE: Afeb. AAOx3. Right hip skin intact. Generalized pain to palpation. RLE short and ER. + logroll. Deferred ROM due to known fracture. Right knee nontender. calf soft, nontender. DNVI RLE
Xrays: Right femoral neck fracture
Impression: MARIBEL
Plan: I discussed with the patient bedside. Call also placed to the patient's daughter, Tonie. RBAs of nonsurgical and surgical management were discussed. Patient and daughter, Tonie, accept all the proposed risks of surgery and would like to proceed.
Post-op and rehab course discussed, including THPs x 6 weeks. In advance we appreciate CM assistance with disposition. Surgical and blood consents have been signed (witnessed via phone by JAD Benitez) and placed on the patient's chart. Operative site
has been marked as the RIGHT hip. Patient is and will remain NPO. T&S requested. We will plan to proceed to the OR around lunchtime today, December 18, under the direction of Dr. Whitlock for a hemiarthroplasty of the RIGHT hip, assuming she has been
cleared medically, and as the OR permits. 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 OR and medical practitioners company notified.
[2023-12-23] VITALS (13 sets, daily range): BP systolic 110–138; BP diastolic 55–73; BMI 20.3
--- NOTE | 2023-12-23 05:44 | PTCARENOTE ---
Pt has not voided since arriving from ED. Pt was incont at time of transfer, bladder scan at this time for 368ML. Pt encouraged to void purewick in place.
--- NOTE | 2023-12-23 05:47 | PTCARENOTE ---
First set of CHG wipes given at this time for anticipation of surgery this morning.
[2023-12-23] MEDS: SYNTHROID 37.5 MCG PO (06:05)
[2023-12-23 07:17] LABS: TSH Reflex To Free T4 2.85 uIU/ml (0.47-4.68)
[2023-12-23] MEDS: PROTONIX 40 MG PO (09:30)
[2023-12-23] MEDS: LASIX 40 MG PO (09:31)
[2023-12-23] MEDS: FLOMAX 0.4 MG PO (09:31)
--- NOTE | 2023-12-23 10:03 | W.PN.HOSP.TC ---
Today's Communication/Plan
-
Continue with bladder scan protocol
Oral Flomax
Early ambulation post op
replace Vitamin B12
Assessment / Plan
Assessment / Plan
Physical Exam
General: Comfortable and Conversant; No Fever or Chills
HEENT: NormoCephalic, Anicteric, Moist mucous membranes, Atraumatic.
Respiratory: Clear; No Wheezes, Rales or Rhonchi
Cardiac: S1/S2, Regular Rhythm and Peripheral Edema (Chronic nonpitting +1, +2 right pedal).
GI: Soft, Non Tender, Non Distended, Normal Bowel Sounds and No Hepatosplenomegaly
Rectal: No rectal bleeding
Genito-urinary:NO hematuria.
Musculoskeletal: Cyanosis, No Cyanosis, Edema, Left Lower Extremity (+1 nonpitting), Edema, Right Lower Extremity (+1 nonpitting to lower extremity, +2 dorsal pedal) and Other (Right leg shortened and externally rotated, tenderness right hip, right
knee secondary to fracture of right femur)
Skin: Warm and Dry; No Rash
Neuro: Awake, Alert, Oriented (To name a, president, daughter but not year or sequence of events), No Slurred Speech, Facial Droop or Tremors
Psych: Calm
A/P
#Right femoral neck fracture secondary to unwitnessed fall, osteopenia.
#Right knee contusion secondary to unwitnessed fall
-Pain control, IV Zofran
-PT/OT/case management consult
Right hip/pelvis: Acute displaced subcapital fracture of the right femoral neck
Right knee severe diffuse soft tissue swelling and subcutaneous edema no joint effusion, fracture or foreign body
CT head: No acute intracranial abnormality
EKG: NSR 70 bpm, QTc 408 MS
# pre-op evaluation
Patient denied chest pain or sob
No hypoxia
EKG NSR, no ischemic changes
Chest x ray last month, no acute process
Patient bullard snot have prohibitive factor to surgery.
# Vitamin B12 deficiency
Replace
# Acute urinary retention
Start on Flomax, c/w Bladder scan protocol
Encourage early ambulation post op.
# Hyponatremia
Monitor
#Chronic idiopathic constipation / Slow transit constipation
#Large amount fecal material cecum and rectum on x-ray
-Abdomen is soft, non tender.
-Postop continue senna daily, MiraLAX as needed, align
#L1 compression fx August 2023/Chronic amb dysfunction - uses walker
- pt on tramadol for pain
#Dementia Hx
CT head showed mild to moderate subcortical, deep, and periventricular white matter low-attenuation, compatible with changes of chronic small vessel ischemic disease.
No agitation
-Fall precautions
#HTN�benign
Slightly on higher side, SBP around 140
No headache.
Add PRN hydralazine
#Anemia-normocytic
Mild acute blood loss anemia due to fracture
#Chronic peripheral edema chronic venous insuff
-cont Lasix 40 mg after surgery
#Hypothyroidism
-Continue levothyroxine 37.5 mcg p.o. daily
#GERD
-Continue omeprazole 40 mg daily
Other PMH:
Pancreatic cyst
Hx colitis
Vertigo
Melanoma removal left arm with lymph node removal
Partial hysterectomy
DVT prophylaxis
SCDs
Full code for surgery then DNR per patient and daughter Tonie
Total time spent to see the patient, examine the patient on the floor, review data and lab results, discuss treatment plan with patient, nursing staff around 55 minutes
Anticipated Discharge: > 48 hours
Subjective/Interval History
-
Date of Service: December 23, 2023
No chest pain
No sob
Objective Data
-
Vital Signs:
Vital Signs
Temp Pulse Resp BP Pulse Ox
98.3 F 71 18 138/56 91
12/23/23 07:30 12/23/23 09:31 12/23/23 07:30 12/23/23 09:31 12/23/23 07:30
I&O
12/22/23 12/23/23 12/24/23
06:59 06:59 06:59
Intake Total 100 / 100
Balance 100 / 100
--- NOTE | 2023-12-23 11:45 | CM ---
Patient who resides at [facility] with Right femoral neck fracture secondary to unwitnessed fall, osteopenia, Right knee contusion secondary to unwitnessed fall. Plan OR today.
Met with patient and daughter Tonie KIMBERLEE. Patient remained sleeping throughout.
The patient resides alone at [facility].
Daughter says patient is intermittently confused at baseline.
The patient is assisted with ADLs and medication management, and ambulates with her rollator to the dining valerio.
DME - rollator, SPC
VN - current with [facility] for PT/OT
No prior SNF.
PCP - Ghulam Rich
Pharmacy - [facility] uses [facility] & are switching to [facility] 12/27/23 per daughter.
The daughter was on vacation in [place] when facility called her to inform her patient being sent to hospital, and she returned home.
The patient's son Ghulam Hannon, who lives in [place], is also POA.
Discussed short term SNF for rehab with daughter and provided [facility] list - daughter may be interested in [place] as family had considered their assisted living unit for LTC.
Plan follow up after seen by PT/OT post op.
[2023-12-23] MEDS: ZOFRAN 4 MG IV (15:29)
--- NOTE | 2023-12-23 15:42 | SUR.PHASEI ---
Pt. medicated per MAR with 4mg zofran, error in the timing of medication documentation, medication administered at 1520 for acute onset of nausea without vomiting, 5 minutes after medication administration pt. endorse improvement of nausea. Pt.
transported back to the floor
[2023-12-23] MEDS: KCL 20 MEQ PO ×2 (16:11→20:24)
[2023-12-23] MEDS: SENOKOT 17.2 MG PO ×2 (16:11→20:24)
[2023-12-23] MEDS: COLACE 100 MG PO ×2 (16:12→20:24)
[2023-12-23] MEDS: VISBIOME 4 CAP PO (16:12)
[2023-12-23 16:16] LABS: Osmolality Urine 377 mOsm/kg (300-900)
[2023-12-23] MEDS: CARAFATE PO (16:20)
[2023-12-23 16:22] LABS: Urine Sodium 129 mmol/L (30-90)
[2023-12-23] MEDS: ASPIRIN 325 MG PO (16:55)
[2023-12-23] MEDS: NORMOSOL-R 1000 IV (16:56)
[2023-12-23] MEDS: CARAFATE 1 GRAM PO (20:24)
[2023-12-23] MEDS: ANCEF 5 IV (20:24)
[2023-12-23] MEDS: ROXICODONE 5 MG PO (22:33)
[2023-12-24 03:01] VITALS: BP 119/54
[2023-12-24] MEDS: NORMOSOL-R 1000 IV (04:24)
[2023-12-24] MEDS: SYNTHROID 37.5 MCG PO (04:25)
[2023-12-24] MEDS: ANCEF 5 IV (04:26)
[2023-12-24] MEDS: ROXICODONE 5 MG PO (04:32)
[2023-12-24 06:00] VITALS: BMI 20.8
[2023-12-24 06:13] LABS: Hematocrit 31.7 % (37.0-47.0); Hemoglobin 11.1 g/dL (12.0-16.0); Mean Corpuscular Hgb 31.3 pg (27.0-31.0); Mean Corpuscular Volume 89.3 fL (81.0-99.0); Mean Platelet Volume 8.5 fL (7.4-10.4); Platelet Count 260 10^3/uL (130-400); Red Blood Cell Count 3.55 10^6/uL (4.20-5.40); Red Cell Dist. Width 14.3 % (11.5-14.5)
[2023-12-24 06:33] LABS: Blood Urea Nitrogen 16 mg/dl (7-17); Carbon Dioxide 33 mmol/L (22-30); Chloride 94 mmol/L (98-107); Estimated Creatinine Clearance 48 ml/min; Glucose 84 mg/dl (70-99); Potassium 3.2 mmol/L (3.5-5.1); Sodium 132 mmol/L (135-145); eGFR > 60.00
[2023-12-24 07:20] VITALS: BP 124/56
[2023-12-24] MEDS: TYLENOL 650 MG PO (07:30)
[2023-12-24] MEDS: VISBIOME 4 CAP PO (07:30)
[2023-12-24] MEDS: PROTONIX 40 MG PO (07:30)
[2023-12-24] MEDS: ASPIRIN 325 MG PO (07:30)
[2023-12-24] MEDS: KCL 20 MEQ PO ×2 (07:31→20:13)
[2023-12-24] MEDS: FLOMAX 0.4 MG PO (07:31)
[2023-12-24] MEDS: LASIX 40 MG PO (07:31)
[2023-12-24] MEDS: CARAFATE 1 GRAM PO ×2 (07:31→20:13)
[2023-12-24] MEDS: VITAMIN B-12 1000 MCG PO (07:31)
[2023-12-24] MEDS: SENOKOT 17.2 MG PO ×2 (07:31→20:13)
[2023-12-24] MEDS: COLACE 100 MG PO ×2 (07:31→20:13)
--- NOTE | 2023-12-24 07:52 | W.PN.ORTHO ---
Today's Communication / Plan
-
88 yo F POD1 right hip hemiarthroplasty under the direction of Dr. Whitlock
--WBAT to RLE with walker. We appreciate the assistance of PT/OT. THPs x6 weeks.
--Recommend ASA 325 mg daily x4 weeks for DVT ppx.
--Medications adjusted slightly this morning. Ice prn for pain and edema control.
--Hgb 11.1 this AM. Continue to monitor.
--Maintain Aquacel dressing until 7-10 days post-op. Staple removal at 2 weeks post-op.
--Case management consult for discharge planning.
--Orthopedics will continue to follow along.
Assessment
.
Distal Motor Intact: Yes
Dressing:
Clean, dry and intact.
Plan
.
Surgery / Date: Right hip hemiarthroplasty, Kamlesh, 12/22
DVT Prophylaxis: Aspirin
Activity:
Out of bed.
PT/OT
Subjective
.
.:
Ms. Hannon is POD 1 following her right hip hemiarthroplasty performed by Dr. Whitlock. She is resting comfortably in bed this morning, but does endorse quite a bit of pain about the hip. She otherwise denies questions or concerns at this time.
Vital Signs and Labs
.
Vital Signs and Labs:
Lab Results
12/24/23 05:18
12/24/23 05:18
Temp Pulse Resp BP Pulse Ox
98.3 F 74 18 133/46 90
12/24/23 07:20 12/24/23 07:31 12/24/23 07:20 12/24/23 07:31 12/24/23 07:20
Physical Exam
-
Directed exam of the right hip reveals slight strikethrough of blood on surgical dressing, otherwise CDI. Mild tenderness to palpation about the lateral hip. Thigh soft and compressible. Calf soft and nontender. Patient able to wiggle toes, plantar
and dorsiflex ankle. Neurovascularly intact distally.
--- NOTE | 2023-12-24 08:21 | W.PN.HOSP.TC ---
Today's Communication/Plan
-
Pain control. PT OT eval. Discharge planning
Assessment / Plan
Assessment / Plan
Physical exam:
General: Well Developed, Well Nourished and No Apparent Distress
HEENT: Normocephalic, Atraumatic and Moist Mucous Membranes
Respiratory: Clear to Auscultation; Negative Wheezes, Rales or Rhonchi
Cardiac: Regular Rhythm and S1/S2
GI: Soft, Nontender and Nondistended
Musculoskeletal: Right hip incision C/D/I. Mild tenderness. No Clubbing, No Cyanosis and No Edema
Neuro: Awake, Alert and mild disoriented
Psych: Calm
A/P
#Right femoral neck fracture secondary to unwitnessed fall, osteopenia.
#Right knee contusion secondary to unwitnessed fall
Status post right hemiarthroplasty by orthopedics.
Pain medications increased doses today by Ortho
PT eval note pending today
OT eval recommends skilled rehab
information resources manager for discharge disposition
# pre-op evaluation
Risk stratification done prior to surgery.
Patient denied chest pain or sob
No hypoxia
EKG NSR, no ischemic changes
Chest x ray last month, no acute process
Patient bullard snot have prohibitive factor to surgery.
# Vitamin B12 deficiency
Continue to replace
# Acute urinary retention
Continue on Flomax, c/w Bladder scan protocol
Encourage early ambulation post op.
# Hyponatremia
Start fluid restriction today less than 50 ounces a day
Monitor
#Hypokalemia
Replete and trend
On diuretics
On standing K
Check Mg in am
#Chronic idiopathic constipation / Slow transit constipation
#Large amount fecal material cecum and rectum on x-ray
Postop continue senna daily, MiraLAX as needed, align
Consider other medications if worsens
#L1 compression fx August 2023/Chronic amb dysfunction - uses walker
Pain control
#Dementia Hx
CT head showed mild to moderate subcortical, deep, and periventricular white matter low-attenuation, compatible with changes of chronic small vessel ischemic disease.
No agitation
Fall precautions
#HTN�benign
Stable
Add PRN hydralazine
#Anemia-normocytic
Mild acute blood loss anemia due to fracture
Hemoglobin 11.1 today
#Chronic peripheral edema chronic venous insuff
-cont Lasix 40 mg after surgery
#Hypothyroidism
-Continue levothyroxine 37.5 mcg p.o. daily
#GERD
-Continue omeprazole 40 mg daily
Other PMH:
Pancreatic cyst
Hx colitis
Vertigo
Melanoma removal left arm with lymph node removal
Partial hysterectomy
DVT prophylaxis
SCDs and aspirin per Ortho
CODE STATUS:
DNR
Anticipated Discharge: 24 - 48 hours
Subjective/Interval History
-
Date of Service: December 24, 2023
Patient denies much of pain on the right hip. Denies chest pain or shortness of breath.
Objective Data
-
Labs:
Laboratory Results
12/24/23
05:18
WBC 7.0
Hgb 11.1 L
Hct 31.7 L
Plt Count 260
Sodium 132 L
Potassium 3.2 L
Chloride 94 L
Carbon Dioxide 33 H
BUN 16
Creatinine 0.7
Glucose 84
Calcium 8.0 L
Vital Signs:
Vital Signs
Temp Pulse Resp BP Pulse Ox
98.3 F 74 18 133/46 90
12/24/23 07:20 12/24/23 07:31 12/24/23 07:20 12/24/23 07:31 12/24/23 07:20
I&O
12/23/23 12/24/23 12/25/23
06:59 06:59 06:59
Intake Total 100 / 100 1964 / 1964
Output Total 1075 / 1075
Balance 100 / 100 890 / 890
[2023-12-24] MEDS: ROXICODONE 10 MG PO ×3 (08:35→20:13)
[2023-12-24] MEDS: KCL 40 MEQ PO (08:35)
[2023-12-24 09:20] VITALS: BP 126/52; PULSE 86; O2SAT 93
--- NOTE | 2023-12-24 14:46 | CM ---
Reviewed the chart notes and spoke with the patient and her daughter at the bedside. Reviewed SNFs. Daughter requests initial referral be to [facility] only. Referral sent with [facility] via [facility]. CM continues to be available to patient/family and is
monitoring medical plan for needs at discharge.
Plan: Discharge to SNF once bed found and auth obtained.
[2023-12-24 15:25] VITALS: BP 93/53
[2023-12-24 23:05] VITALS: BP 110/58
[2023-12-25] MEDS: ROXICODONE 5 MG PO (01:36)
[2023-12-25] MEDS: FLEXERIL 5 MG PO (01:36)
[2023-12-25] MEDS: SYNTHROID 37.5 MCG PO (05:37)
[2023-12-25 06:00] VITALS: BMI 21.6
--- NOTE | 2023-12-25 07:01 | W.PN.ORTHO ---
Today's Communication / Plan
-
Appreciate the primary teams efforts in this patient's care, continue Tx
Appreciate CM with disp, likely SNF
Continue WBAT on walker/assistance
PT/OT, THPs x 6 weeks
ASA 325mg for DVT ppx x 4 weeks
Dressing to remain 2 weeks, tremaine out at 2 weeks (facility or office)
If tremaine out at SNF outpatient Ortho follow-up 4 weeks
Assessment
.
Distal Motor Intact: Yes
Dressing:
Clean, dry and intact. Aquacel in place right hip
Assessment:
POD#2 Right hip [place]
Overall doing well
Plan
.
Surgery / Date: Right hip hemiarthroplasty, Ritting, 12/22
DVT Prophylaxis: Aspirin
Activity:
Out of bed. WBAT RLE on walker
PT/OT
Discharge Plan: SNF
Subjective
.
.:
Patient resting comfortably. No pain right hip this AM
Vital Signs and Labs
.
Vital Signs and Labs:
Temp Pulse Resp BP Pulse Ox
99.0 F 86 16 110/58 93
12/24/23 23:05 12/24/23 23:05 12/24/23 23:05 12/24/23 23:05 12/24/23 23:05
Non-invasive Hgb result: 10.5
[2023-12-25 07:18] VITALS: BP 121/59
[2023-12-25 07:19] LABS: Hemoglobin 10.1 g/dL (12.0-16.0); Mean Corp Hgb Conc. 34.8 g/dL (33.0-37.0); Mean Corpuscular Hgb 31.7 pg (27.0-31.0); Mean Corpuscular Volume 90.9 fL (81.0-99.0); Mean Platelet Volume 8.5 fL (7.4-10.4); Platelet Count 235 10^3/uL (130-400); Red Blood Cell Count 3.19 10^6/uL (4.20-5.40); Red Cell Dist. Width 14.6 % (11.5-14.5); White Blood Cell Count 5.2 10^3/uL (4.8-10.8)
[2023-12-25 07:53] LABS: Blood Urea Nitrogen 22 mg/dl (7-17); Calcium 7.8 mg/dl (8.4-10.2); Carbon Dioxide 30 mmol/L (22-30); Chloride 96 mmol/L (98-107); Estimated Creatinine Clearance 48 ml/min; Glucose 91 mg/dl (70-99); Magnesium 1.3 mg/dl (1.6-2.3); Potassium 3.7 mmol/L (3.5-5.1); Sodium 130 mmol/L (135-145); eGFR > 60.00
--- NOTE | 2023-12-25 08:55 | W.PN.HOSP.TC ---
Today's Communication/Plan
-
replete Mg, d/c planning in progress
Assessment / Plan
Assessment / Plan
Physical exam:
General: Well Developed, Well Nourished and No Apparent Distress
HEENT: Normocephalic, Atraumatic and Moist Mucous Membranes
Respiratory: Clear to Auscultation; Negative Wheezes, Rales or Rhonchi
Cardiac: Regular Rhythm and S1/S2
GI: Soft, Nontender and Nondistended
Musculoskeletal: Right hip incision C/D/I. Mild tenderness. No Clubbing, No Cyanosis and No Edema
Neuro: Awake, Alert and mild disoriented
Psych: Calm
A/P
#Right femoral neck fracture secondary to unwitnessed fall, osteopenia.
#Right knee contusion secondary to unwitnessed fall
Status post right hemiarthroplasty by orthopedics.
Pain medications increased doses yesterday by Ortho
Hb 10.1 today
PT eval recommends skilled rehab
OT eval recommends skilled rehab
internet cafe manager for discharge disposition
# pre-op evaluation
Risk stratification done prior to surgery.
Patient denied chest pain or sob
No hypoxia
EKG NSR, no ischemic changes
Chest x ray last month, no acute process
Patient bullard snot have prohibitive factor to surgery.
# Vitamin B12 deficiency
Continue to replace
# Acute urinary retention
Continue on Flomax while inpatient, c/w Bladder scan protocol
Encourage early ambulation post op.
# Hyponatremia
Cont fluid restriction today less than 50 ounces a day
Monitor
#Hypokalemia
Improved
Replete and trend
On diuretics
On standing K
#Hypomagnesemia
Replete IV and po
Recheck in am
#Chronic idiopathic constipation / Slow transit constipation
#Large amount fecal material cecum and rectum on x-ray
Postop continue senna daily, MiraLAX as needed, align
Consider other medications if worsens
#L1 compression fx August 2023/Chronic amb dysfunction - uses walker
Pain control
#Dementia Hx
CT head showed mild to moderate subcortical, deep, and periventricular white matter low-attenuation, compatible with changes of chronic small vessel ischemic disease.
No agitation
Fall precautions
#HTN�benign
Stable
Add PRN hydralazine
#Anemia-normocytic
Mild acute blood loss anemia due to fracture
Hemoglobin 11.1 today
#Chronic peripheral edema chronic venous insuff
-cont Lasix 40 mg after surgery
#Hypothyroidism
-Continue levothyroxine 37.5 mcg p.o. daily
#GERD
-Continue omeprazole 40 mg daily
Other PMH:
Pancreatic cyst
Hx colitis
Vertigo
Melanoma removal left arm with lymph node removal
Partial hysterectomy
DVT prophylaxis
SCDs and aspirin per Ortho
CODE STATUS:
DNR
Anticipated Discharge: 24 - 48 hours
Subjective/Interval History
-
Date of Service: December 25, 2023
pain better controlled, no n/v/d
Objective Data
-
Labs:
Laboratory Results
12/25/23
06:15
WBC 5.2
Hgb 10.1 L
Hct 29.0 L
Plt Count 235
Sodium 130 L
Potassium 3.7
Chloride 96 L
Carbon Dioxide 30
BUN 22 H
Creatinine 0.7
Glucose 91
Calcium 7.8 L
Vital Signs:
Vital Signs
Temp Pulse Resp BP Pulse Ox
99.5 F 82 15 121/59 94
12/25/23 07:18 12/25/23 07:18 12/25/23 07:18 12/25/23 07:18 12/25/23 07:18
I&O
12/24/23 12/25/23 12/26/23
06:59 06:59 06:59
Intake Total 1964 / 1964 1185 / 1185
Output Total 1075 / 1075
Balance 890 / 890 1185 / 1185
[2023-12-25] MEDS: MAGNESIUM SULFATE 50 IV (09:04)
[2023-12-25] MEDS: FLOMAX 0.4 MG PO (09:05)
[2023-12-25] MEDS: SENOKOT 17.2 MG PO ×2 (09:05→21:00)
[2023-12-25] MEDS: PROTONIX 40 MG PO (09:05)
[2023-12-25] MEDS: VITAMIN B-12 1000 MCG PO (09:05)
[2023-12-25] MEDS: VISBIOME 4 CAP PO (09:05)
[2023-12-25] MEDS: ASPIRIN 325 MG PO (09:06)
[2023-12-25] MEDS: KCL 20 MEQ PO ×2 (09:06→21:00)
[2023-12-25] MEDS: COLACE 100 MG PO ×2 (09:06→21:00)
[2023-12-25] MEDS: CARAFATE 1 GRAM PO ×2 (09:06→21:00)
[2023-12-25] MEDS: LASIX 40 MG PO (09:06)
[2023-12-25] MEDS: ROXICODONE 10 MG PO ×2 (09:18→14:21)
--- NOTE | 2023-12-25 13:25 | CM ---
Addendum entered by Jennifer Mena RN 12/25/23 13:58:
The patient's daughter additional requested referrals be sent to [facility], [facility], [facility], and [facility]. All sent via [facility].
Original Note:
Reviewed the chart notes and spoke with the patient's daughter via telephone. She is in [place] today. Informed her that [facility] will not have any beds available this week. Discussed that will need additional SNF names for referrals to be sent for
the patient to discharge to rehab. Patient's daughter will call back with additional names.
[2023-12-25 14:54] VITALS: BP 109/54; BP 111/59; PULSE 89; PULSE 98; O2SAT 93
[2023-12-25 15:21] VITALS: BP 90/48
[2023-12-25] MEDS: TYLENOL 650 MG PO (21:00)
[2023-12-25] MEDS: MAG-TAB SR 84 MG PO (21:00)
[2023-12-25 22:59] VITALS: BP 100/41
[2023-12-26] MEDS: SYNTHROID 37.5 MCG PO (05:20)
[2023-12-26] MEDS: TYLENOL 650 MG PO (05:22)
[2023-12-26 06:00] VITALS: BMI 20.6
[2023-12-26 06:52] LABS: Hematocrit 28.9 % (37.0-47.0); Hemoglobin 9.9 g/dL (12.0-16.0); Mean Corp Hgb Conc. 34.3 g/dL (33.0-37.0); Mean Corpuscular Volume 93.5 fL (81.0-99.0); Mean Platelet Volume 8.6 fL (7.4-10.4); Platelet Count 230 10^3/uL (130-400); Red Blood Cell Count 3.09 10^6/uL (4.20-5.40); Red Cell Dist. Width 14.5 % (11.5-14.5); White Blood Cell Count 5.8 10^3/uL (4.8-10.8)
[2023-12-26 07:19] LABS: Blood Urea Nitrogen 25 mg/dl (7-17); Calcium 7.9 mg/dl (8.4-10.2); Carbon Dioxide 29 mmol/L (22-30); Chloride 97 mmol/L (98-107); Estimated Creatinine Clearance 56 ml/min; Glucose 81 mg/dl (70-99); Magnesium 1.9 mg/dl (1.6-2.3); Potassium 3.8 mmol/L (3.5-5.1); Sodium 130 mmol/L (135-145); eGFR > 60.00
[2023-12-26 07:27] VITALS: BP 115/61
[2023-12-26] MEDS: PROTONIX 40 MG PO (08:02)
[2023-12-26] MEDS: VISBIOME 4 CAP PO (08:02)
[2023-12-26] MEDS: SENOKOT 17.2 MG PO ×2 (08:03→21:17)
[2023-12-26] MEDS: VITAMIN B-12 1000 MCG PO (08:03)
[2023-12-26] MEDS: KCL 20 MEQ PO ×2 (08:03→21:17)
[2023-12-26] MEDS: MAG-TAB SR 84 MG PO ×2 (08:03→21:17)
[2023-12-26] MEDS: ASPIRIN 325 MG PO (08:03)
[2023-12-26] MEDS: FLOMAX 0.4 MG PO (08:03)
[2023-12-26] MEDS: CARAFATE 1 GRAM PO ×2 (08:03→21:17)
[2023-12-26] MEDS: COLACE 100 MG PO ×2 (08:03→21:17)
[2023-12-26] MEDS: LASIX 40 MG PO (08:03)
[2023-12-26] MEDS: MILK OF MAGNESIA 30 ML PO (08:05)
--- NOTE | 2023-12-26 08:41 | W.PN.HOSP.TC ---
Today's Communication/Plan
-
Postop care. Discharge planning
Assessment / Plan
Assessment / Plan
Physical exam:
General: Well Developed, Well Nourished and No Apparent Distress
HEENT: Normocephalic, Atraumatic and Moist Mucous Membranes
Respiratory: Clear to Auscultation; Negative Wheezes, Rales or Rhonchi
Cardiac: Regular Rhythm and S1/S2
GI: Soft, Nontender and Nondistended
Musculoskeletal: Right hip incision C/D/I. Mild tenderness. No Clubbing, No Cyanosis and No Edema
Neuro: Awake, Alert and mild disoriented
Psych: Calm
A/P
#Right femoral neck fracture secondary to unwitnessed fall, osteopenia.
#Right knee contusion secondary to unwitnessed fall
Status post right hemiarthroplasty by orthopedics.
Pain medications
Hb 9.9 today
PT eval recommends skilled rehab
OT eval recommends skilled rehab
owner manager for discharge disposition. Patient medically clear for d/c.
# pre-op evaluation
Risk stratification done prior to surgery.
Patient denied chest pain or sob
No hypoxia
EKG NSR, no ischemic changes
Chest x ray last month, no acute process
Patient did not have prohibitive factor to surgery.
# Vitamin B12 deficiency
Continue to replace
# Acute urinary retention
Continue on Flomax while inpatient, c/w Bladder scan protocol
Encourage early ambulation post op.
# Hyponatremia
Cont fluid restriction today less than 50 ounces a day
Latest sodium 130
#Hypokalemia
Improved
Replete and trend
On diuretics
On standing K
#Hypomagnesemia
Replete IV and po
Recheck in am
#Chronic idiopathic constipation / Slow transit constipation
#Large amount fecal material cecum and rectum on x-ray
Postop continue senna daily, MiraLAX as needed, align
Consider other medications if worsens
#L1 compression fx August 2023/Chronic amb dysfunction - uses walker
Pain control
#Dementia Hx
CT head showed mild to moderate subcortical, deep, and periventricular white matter low-attenuation, compatible with changes of chronic small vessel ischemic disease.
No agitation
Fall precautions
#HTN�benign
Stable
Add PRN hydralazine
#Anemia-normocytic
Mild acute blood loss anemia due to fracture
monitor h/h
#Chronic peripheral edema chronic venous insuff
-cont Lasix 40 mg after surgery
#Hypothyroidism
-Continue levothyroxine 37.5 mcg p.o. daily
#GERD
-Continue omeprazole 40 mg daily
Other PMH:
Pancreatic cyst
Hx colitis
Vertigo
Melanoma removal left arm with lymph node removal
Partial hysterectomy
DVT prophylaxis
SCDs and aspirin per Ortho
CODE STATUS:
DNR
Anticipated Discharge: 24 - 48 hours
Subjective/Interval History
-
Date of Service: December 26, 2023
Patient doing well postop. No bleeding
Objective Data
-
Labs:
Laboratory Results
12/26/23
06:09
WBC 5.8
Hgb 9.9 L
Hct 28.9 L
Plt Count 230
Sodium 130 L
Potassium 3.8
Chloride 97 L
Carbon Dioxide 29
BUN 25 H
Creatinine 0.6
Glucose 81
Calcium 7.9 L
Vital Signs:
Vital Signs
Temp Pulse Resp BP Pulse Ox
98.1 F 75 15 115/61 96
12/26/23 07:27 12/26/23 07:27 12/26/23 07:27 12/26/23 07:27 12/26/23 07:27
I&O
12/25/23 12/26/23 12/27/23
06:59 06:59 06:59
Intake Total 1185 / 1185 420 / 420
Balance 1185 / 1185 420 / 420
[2023-12-26] MEDS: ROXICODONE 10 MG PO ×2 (10:01→14:02)
--- NOTE | 2023-12-26 13:23 | CM ---
Reviewed the chart notes and spoke with the patient's daughter at the bedside. She has selected [facility]. Contacted [facility] Admissions Liaison, looking to see when a bed will be available. Precert will be required. CM continues to be available to
patient/family and is monitoring medical plan for needs at discharge.
Plan: Discharge to hopefully [facility] once bed available. Precert will be required.
[2023-12-26 15:07] VITALS: BP 105/59; PULSE 87; O2SAT 95
[2023-12-26 15:10] VITALS: BP 105/59; PULSE 87; O2SAT 95
[2023-12-26 23:06] VITALS: BP 109/50
[2023-12-27] MEDS: SYNTHROID 37.5 MCG PO (05:16)
[2023-12-27 06:28] LABS: Hematocrit 27.4 % (37.0-47.0); Hemoglobin 9.3 g/dL (12.0-16.0)
[2023-12-27 07:35] VITALS: BP 118/61
[2023-12-27] MEDS: VISBIOME 4 CAP PO (08:25)
[2023-12-27] MEDS: PROTONIX 40 MG PO (08:25)
[2023-12-27] MEDS: VITAMIN B-12 1000 MCG PO (08:25)
[2023-12-27] MEDS: LASIX 40 MG PO (08:25)
[2023-12-27] MEDS: SENOKOT 17.2 MG PO ×2 (08:25→20:52)
[2023-12-27] MEDS: ASPIRIN 325 MG PO (08:25)
[2023-12-27] MEDS: FLOMAX 0.4 MG PO (08:25)
[2023-12-27] MEDS: CARAFATE 1 GRAM PO ×2 (08:25→20:52)
[2023-12-27] MEDS: COLACE 100 MG PO ×2 (08:25→20:52)
[2023-12-27] MEDS: KCL 20 MEQ PO ×2 (08:25→20:52)
[2023-12-27] MEDS: MAG-TAB SR 84 MG PO ×2 (08:25→20:52)
--- NOTE | 2023-12-27 08:43 | W.PN.HOSP.TC ---
Today's Communication/Plan
-
Discharge planning in progress
Assessment / Plan
Assessment / Plan
Physical exam:
General: Well Developed, Well Nourished and No Apparent Distress
HEENT: Normocephalic, Atraumatic and Moist Mucous Membranes
Respiratory: Clear to Auscultation; Negative Wheezes, Rales or Rhonchi
Cardiac: Regular Rhythm and S1/S2
GI: Soft, Nontender and Nondistended
Musculoskeletal: Right hip incision C/D/I. Mild tenderness. No Clubbing, No Cyanosis and No Edema
Neuro: Awake, Alert and mild disoriented
Psych: Calm
A/P
#Right femoral neck fracture secondary to unwitnessed fall, osteopenia.
#Right knee contusion secondary to unwitnessed fall
Status post right hemiarthroplasty by orthopedics.
Pain medications
Hb 9.3 today
PT eval recommends skilled rehab
OT eval recommends skilled rehab
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 Patient medically clear for d/c.
# pre-op evaluation
Risk stratification done prior to surgery.
Patient denied chest pain or sob
No hypoxia
EKG NSR, no ischemic changes
Chest x ray last month, no acute process
Patient did not have prohibitive factor to surgery.
# Vitamin B12 deficiency
Continue to replace
# Acute urinary retention
Continue on Flomax while inpatient, c/w Bladder scan protocol
Encourage early ambulation post op.
# Hyponatremia
Cont fluid restriction today less than 50 ounces a day
Latest sodium 130
#Hypokalemia
Improved
Replete and trend
On diuretics
On standing K
#Hypomagnesemia
Replete IV and po
Recheck in am
#Chronic idiopathic constipation / Slow transit constipation
#Large amount fecal material cecum and rectum on x-ray
Postop continue senna daily, MiraLAX as needed, align
Consider other medications if worsens
#L1 compression fx August 2023/Chronic amb dysfunction - uses walker
Pain control
#Dementia Hx
CT head showed mild to moderate subcortical, deep, and periventricular white matter low-attenuation, compatible with changes of chronic small vessel ischemic disease.
No agitation
Fall precautions
#HTN�benign
Stable
Add PRN hydralazine
#Anemia-normocytic
Mild acute blood loss anemia due to fracture
monitor h/h
#Chronic peripheral edema chronic venous insuff
-cont Lasix 40 mg after surgery
#Hypothyroidism
-Continue levothyroxine 37.5 mcg p.o. daily
#GERD
-Continue omeprazole 40 mg daily
Other PMH:
Pancreatic cyst
Hx colitis
Vertigo
Melanoma removal left arm with lymph node removal
Partial hysterectomy
DVT prophylaxis
SCDs and aspirin per Ortho
CODE STATUS:
DNR
Anticipated Discharge: 24 - 48 hours
Subjective/Interval History
-
Date of Service: December 27, 2023
No new complaints.
Objective Data
-
Labs:
Laboratory Results
12/27/23
06:02
Hgb 9.3 L
Hct 27.4 L
Vital Signs:
Vital Signs
Temp Pulse Resp BP Pulse Ox
98.1 F 84 18 118/61 96
12/27/23 07:35 12/27/23 07:35 12/27/23 07:35 12/27/23 07:35 12/27/23 08:00
I&O
12/26/23 12/27/23 12/28/23
06:59 06:59 06:59
Intake Total 420 / 420 1100 / 1100
Balance 420 / 420 1100 / 1100
[2023-12-27] MEDS: MILK OF MAGNESIA 30 ML PO (12:37)
[2023-12-27] MEDS: TYLENOL 650 MG PO (13:48)
[2023-12-27 14:23] VITALS: BP 101/61; PULSE 88; O2SAT 94
[2023-12-27 14:25] VITALS: BP 101/61; PULSE 88; O2SAT 94
--- NOTE | 2023-12-27 15:08 | CM ---
Awaiting [facility] insurance auth, pending reference # [id number], for [facility] for STR.
[2023-12-27 15:20] VITALS: BP 97/55
[2023-12-27 23:52] VITALS: BP 111/56
--- NOTE | 2023-12-28 00:45 | PTCARENOTE ---
Pt found with pocket knife in hand. Pt willingly handed them over to the PCT. Security called and Nurse Propeller Mechanic came to bedside. Scissors and knitting needles also removed from patient and placed in a label bag and taken out of the room.
[2023-12-28] MEDS: SYNTHROID 37.5 MCG PO (05:13)
[2023-12-28 05:15] VITALS: BMI 20.2
[2023-12-28 07:42] VITALS: BP 123/61
[2023-12-28] MEDS: VITAMIN B-12 1000 MCG PO (08:34)
[2023-12-28] MEDS: ASPIRIN 325 MG PO (08:34)
[2023-12-28] MEDS: FLOMAX 0.4 MG PO (08:34)
[2023-12-28] MEDS: SENOKOT 17.2 MG PO (08:34)
[2023-12-28] MEDS: LASIX 40 MG PO (08:34)
[2023-12-28] MEDS: COLACE 100 MG PO (08:34)
[2023-12-28] MEDS: VISBIOME 4 CAP PO (08:34)
[2023-12-28] MEDS: MAG-TAB SR 84 MG PO (08:34)
[2023-12-28] MEDS: PROTONIX 40 MG PO (08:34)
[2023-12-28] MEDS: CARAFATE 1 GRAM PO (08:34)
[2023-12-28] MEDS: KCL 20 MEQ PO (08:34)
--- NOTE | 2023-12-28 09:34 | W.PN.HOSP.TC ---
Today's Communication/Plan
-
Discharge planning today
Assessment / Plan
Assessment / Plan
Physical exam:
General: Well Developed, Well Nourished and No Apparent Distress
HEENT: Normocephalic, Atraumatic and Moist Mucous Membranes
Respiratory: Clear to Auscultation; Negative Wheezes, Rales or Rhonchi
Cardiac: Regular Rhythm and S1/S2
GI: Soft, Nontender and Nondistended
Musculoskeletal: Right hip incision C/D/I. Mild tenderness. No Clubbing, No Cyanosis and No Edema
Neuro: Awake, Alert and mild disoriented
Psych: Calm
A/P
#Right femoral neck fracture secondary to unwitnessed fall, osteopenia.
#Right knee contusion secondary to unwitnessed fall
Status post right hemiarthroplasty by orthopedics.
Pain medications
Hb 9.7 today
PT eval recommends skilled rehab
OT eval recommends skilled rehab
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 Patient medically clear for d/c.
Discussed with daughter at bedside today
# pre-op evaluation
Risk stratification done prior to surgery.
Patient denied chest pain or sob
No hypoxia
EKG NSR, no ischemic changes
Chest x ray last month, no acute process
Patient did not have prohibitive factor to surgery.
# Vitamin B12 deficiency
Continue to replace
# Acute urinary retention
Continue on Flomax while inpatient, c/w Bladder scan protocol
Encourage early ambulation post op.
# Hyponatremia
Cont fluid restriction today less than 50 ounces a day
Latest sodium 130
#Hypokalemia
Improved
Replete and trend
On diuretics
On standing K
#Hypomagnesemia
Replete IV and po
Recheck in am
#Chronic idiopathic constipation / Slow transit constipation
#Large amount fecal material cecum and rectum on x-ray
Postop continue senna daily, MiraLAX as needed, align
Consider other medications if worsens
#L1 compression fx August 2023/Chronic amb dysfunction - uses walker
Pain control
#Dementia Hx
CT head showed mild to moderate subcortical, deep, and periventricular white matter low-attenuation, compatible with changes of chronic small vessel ischemic disease.
No agitation
Fall precautions
#HTN�benign
Stable
Add PRN hydralazine
#Anemia-normocytic
Mild acute blood loss anemia due to fracture
monitor h/h
#Chronic peripheral edema chronic venous insuff
-cont Lasix 40 mg after surgery
#Hypothyroidism
-Continue levothyroxine 37.5 mcg p.o. daily
#GERD
-Continue omeprazole 40 mg daily
Other PMH:
Pancreatic cyst
Hx colitis
Vertigo
Melanoma removal left arm with lymph node removal
Partial hysterectomy
DVT prophylaxis
SCDs and aspirin per Ortho
CODE STATUS:
DNR
Anticipated Discharge: Today
Subjective/Interval History
-
Date of Service: December 28, 2023
No new complaints.
Objective Data
-
Labs:
Laboratory Results
12/28/23
06:29
Hgb Pending
Hct Pending
Vital Signs:
Vital Signs
Temp Pulse Resp BP Pulse Ox
98.2 F 76 15 123/61 95
12/28/23 07:42 12/28/23 07:42 12/28/23 07:42 12/28/23 07:42 12/28/23 07:42
I&O
12/27/23 12/28/23 12/29/23
06:59 06:59 06:59
Intake Total 1100 / 1100 220 / 220
Balance 1100 / 1100 220 / 220
[2023-12-28 11:27] LABS: Hematocrit 28.6 % (37.0-47.0); Hemoglobin 9.7 g/dL (12.0-16.0)
--- NOTE | 2023-12-28 12:10 | CM ---
Addendum entered by Indira Isidro 12/28/23 13:50:
Met with patient and daughter at bedside; both agreeable with discharge plan to [facility]
IMM benefit explained; form signed @ 1350
Ambulance pick up man scheduled for 1530 today
Plan: Discharge to [facility] today
Report # [phone]

Addendum entered by Indira Isidro 12/28/23 12:34:
Ambulance pick up man requested for after 1500 today
Attending and Nursing notified via [employer] Text
Addendum entered by Indira Isidro 12/28/23 12:24:
Plan: Discharge to [facility] today
Report # [phone]

Original Note:
Plan: Discharge to [facility]
Insurance Authorization Approved; start 12/27/2023; next review 12/31/2023;
For Concurrent Review ; [facility] (CM) is [facility]. Once patient is admitted to bed at facility, Call # [phone] to send alert to [facility]
Auth # [id number]
AUTH ID Approval # [id number]
--- NOTE | 2023-12-28 12:53 | W.DCSUMMARY ---
Discharge Summary
Discharge Data
Date of Admission: 12/22/23
Date of Discharge: 12/28/23
-
Pending Results: No
Hospital Course
Patient 88 years old female history of mild dementia, hypothyroidism, vertigo, venous insufficiency, presented after a fall and found to have right hip fracture. Orthopedic consulted. She underwent right hip hemiarthroplasty on 12/22. Patient did
well rest of the hospital course. Pain medications were adjusted and pain was better controlled. She had mild 24 hemoglobin related to postop anemia but no signs of active bleed and hemoglobin was 9.7 upon discharge. She also had some B12
deficiency and recommended to continue B12 supplementation she had mild urinary retention and received some Flomax temporarily and improved. She also had mild hyponatremia responded to fluid restriction. She also had mild hypokalemia that
responded to replacement while she was on diuretics. Patient has been cleared by orthopedic. She will be discharged in stable condition today.
Discharge duration: 35 minutes
Discharge Plan
-
Patient Disposition: Long Term/SNF
Discharge Diagnosis/Procedures: Right femoral neck fracture status post right hemiarthroplasty. Vitamin B12 deficiency. Urinary retention. Hyponatremia. Hypokalemia. Hypomagnesemia. Constipation. Cognitive deficits. Hypertension. Acute
postop anemia.
Activity: With assistance and As tolerated
Blood Work: Please PCP to order CBC, BMP within 1 week
Referrals:
Akira Serrano PA-C [Specified Professional Personl] - in one month
Ghulam Rich MD [Family Provider] - in less than 1 week
Prescriptions:
New
cyanocobalamin (vitamin B-12) 1,000 mcg Tablet
1,000 mcg PO DAILY Qty: 30 0RF
magnesium L-lactate 84 mg Tablet Extended Release
84 mg PO BID 5 Days Qty: 10 0RF
oxycodone 10 mg Tablet
10 mg PO Q4HPRN PRN (Reason: moderate pain) Qty: 4 0RF
aspirin 325 mg Tablet
325 mg PO DAILY 30 Days Qty: 30 0RF
polyethylene glycol 3350 [Miralax] 17 gram powder in packet
17 g PO DAILY Qty: 14 0RF
Continued
levothyroxine 25 MCG tablet
37.5 mcg PO DAILY@06
potassium chloride [Klor-Con M20] 20 MEQ tablet,ER particles/crystals
20 meq PO BID
furosemide 40 mg Tablet
40 mg PO DAILY
sennosides [senna] 8.6 mg Tablet
8.6 mg PO DAILY
sucralfate 1 gram Tablet
1 g PO BIDPRN PRN (Reason: ulcers)
omeprazole 40 mg Capsule,Delayed Release(Dr/Ec)
40 mg PO DAILY
cyclobenzaprine 5 mg Tablet
5 mg PO HSPRN PRN (Reason: back pain)
Align 4 mg Capsule
4 mg PO DAILY
fluticasone propionate [Flonase Allergy Relief] 50 mcg/actuation [place],Suspension
2 spray INTRANASAL DAILY
Discontinued
tramadol 50 mg Tablet
50 mg PO Q6HPRN PRN (Reason: moderate pain)
Discharge Orders:
Discharge Patient (As Directed); Ordered 12/28/23
Ordered By: John Marquez
Discharge Date and Time
Discharge Date/Time: 12/28/23 16:08
Print Language: [place]OU[place]
[2023-12-28] MEDS: TYLENOL 650 MG PO (12:54)
[2023-12-28 15:24] VITALS: BP 114/62
== END 2023-12-28 16:08 | DRG 522 ==
LOC: 2 SOUTH 21:34
PROVIDERS: Clinical Nurse Specialist Family Health; Internal Medicine; ADMITTING PHYSICIAN Hospitalist; ATTENDING PHYSICIAN Hospitalist; CONSULT PHYSICIAN Orthopaedic Surgery Hand Surgery; EMERGENCY PHYSICIAN Student in an Organized Health Care Education/Training Program; FAMILY PHYSICIAN Family Medicine
PROC: 0SRR0JA Replacement of Right Hip Joint, Femoral Surface with Synthetic Substitute, Uncemented, Open Approach (ICD-10-PCS; 2023-12-23)
DX: S72.011A Unspecified intracapsular fracture of right femur, initial encounter for closed fracture (principal); E87.1 Hypo-osmolality and hyponatremia; I50.32 Chronic diastolic (congestive) heart failure; M48.56XA Collapsed vertebra, not elsewhere classified, lumbar region, initial encounter for fracture; D62 Acute posthemorrhagic anemia; K86.2 Cyst of pancreas; E53.8 Deficiency of other specified B group vitamins; R11.0 Nausea; S80.01XA Contusion of right knee, initial encounter; W19.XXXA Unspecified fall, initial encounter; Y93.9 Activity, unspecified; Y92.099 Unspecified place in other non-institutional residence as the place of occurrence of the external cause; E03.9 Hypothyroidism, unspecified; K21.9 Gastro-esophageal reflux disease without esophagitis; F03.A0 Unspecified dementia, mild, without behavioral disturbance, psychotic disturbance, mood disturbance, and anxiety; R33.9 Retention of urine, unspecified; I11.0 Hypertensive heart disease with heart failure; E87.6 Hypokalemia; E83.42 Hypomagnesemia; M85.851 Other specified disorders of bone density and structure, right thigh; K59.09 Other constipation; I87.2 Venous insufficiency (chronic) (peripheral); J30.2 Other seasonal allergic rhinitis; R41.89 Other symptoms and signs involving cognitive functions and awareness; G89.29 Other chronic pain; M54.50 Low back pain, unspecified; Z66 Do not resuscitate; Z88.2 Allergy status to sulfonamides; Z88.8 Allergy status to other drugs, medicaments and biological substances; Z87.891 Personal history of nicotine dependence; Z85.820 Personal history of malignant melanoma of skin; Z79.890 Hormone replacement therapy; Z79.51 Long term (current) use of inhaled steroids; Z87.11 Personal history of peptic ulcer disease
CPT/HCPCS: 70450; 73502; 73564; 80048; 80053; 82607; 82728; 82746; 83540; 83550; 83735; 83935; 84300; 84443; 85014; 85018; 85025; 85027; 86850; 86900; 86901; 93005; 97110; 97116; 97163; 97167; 97530; 97535; 99285; C1776